=== PATIENT | female | born 1960 | race Caucasian/White ===

== ENCOUNTER → 2018-06-07 19:53 | Outpatient (CLI) | payer BC, SELFPAY | PROVIDERS: Visit Provider Physician Assistant | DX: N39.0 Urinary tract infection, site not specified (principal); R10.9 Unspecified abdominal pain | CPT/HCPCS: 87077; 87086; 87147 ==

== ENCOUNTER → 2018-06-27 17:50 | Outpatient (CLI) | payer BC, SELFPAY ==
[2018-06-27 18:20] LABS: Influenza A and B by PCR Rapid Negative (Negative)
== END ==
PROVIDERS: Visit Provider Physician Assistant
DX: R50.9 Fever, unspecified (principal); R51 Headache; R53.83 Other fatigue
CPT/HCPCS: 87400

== ENCOUNTER → 2019-02-04 08:25 | Outpatient (CLI) | payer SELFPAY | PROVIDERS: Visit Provider Physician Assistant | DX: N30.01 Acute cystitis with hematuria (principal) | CPT/HCPCS: 87077; 87086; 87186 ==

== ENCOUNTER 2019-07-22 09:23 | Day surgery (SDC) | payer OTHER, SELFPAY ==
--- NOTE | 2019-07-21 17:37 | PM.PREOP ---
Pre-operative Note Interval Note History & Physical reviewed/Exam performed by Physician: Yes Changes to H&P: No
--- NOTE | 2019-07-22 09:40 | PM.OP.1 ---
Operative Date/Time/Diagnoses Date of procedure: 07/22/19 Time of procedure: 10:45 Procedure & Clinicians Procedure: Preoperative diagnoses: 1. Right advanced nuclear sclerotic and cortical cataract. 2. Status post LASIK refractive surgery twice. 3. Asthma. 4. Hypertension Postoperative diagnoses: 1. Complex cataract removed by phacoemulsification with placement of posterior chamber intraocular lens and use of capsular dye. Procedure: Phacoemulsification with posterior chamber intraocular lens implant Surgeon: Faye Nolan MD Complications: None Specimen: None Implant: [id number] Blood loss: None Anesthesia: Retrobulbar with monitored standby Description of procedure: Patient presents with a complaint of decreased vision due to advanced cataract which is affecting activities of daily living and causing disabling glare. She has had refractive surgery twice in this and now has an advanced cortical nuclear sclerotic cataract with poor visibility of the anterior chamber. The patient wants surgery to improve vision. The patient was taken to the operating room and given IV sedation. A retrobulbar block consisting of 6 cc of 2% xylocaine without epinephrine mixed half and half with 0.5% Marcaine with 1 cc of hyaluronidase added is placed between the medial and lateral 1/3 of the inferior orbital rim. The eye is manually massaged for 30 sec, prepped using Betadine solution, and draped in the usual sterile fashion. Temporal approach was made, a 1 mm side-port incision was made 90? from the proposed clear corneal incision position. Phenylephrine 1.5% mixed with 1% xylocaine 0.2 cc was placed into the anterior chamber. An air bubble was placed and Visudyne capsular dye was placed on the anterior capsule to improve visibility. The excess dye was then irrigated. Viscoat followed by Alannah was then placed. A 2.6 mm clear incision with a 2.6 mm blade was placed. A 360 degree capsulorrhexis style capsulotomy was then performed with a cystitome needle on a Healon. Visibility was poor but greatly aided by the capsular dye and that a Utrata forceps was used to complete the capsulorrhexis.Hydrodelineation and hydrodissection were performed. The phacoemulsification unit is introduced, and sculpting notice used to groove the central lens. It is then removed in chopping mode. Epi nucleus is removed with epinuclear mode and irrigation aspiration was used to remove the peripheral cortex. The posterior capsule is polished. The intraocular lens is selected, inspected, power confirmed, and placed in the posterior chamber. The wound was stromally hydrated and tested for leaks, there was none and it was left sutureless. Vigamox 0.1 cc was placed into the anterior chamber. Kenalog 0.2 cc was placed in the superior subconjunctival space. A drop of antibiotic and was placed and the eye was patched and shielded. The patient was stable and returned to the recovery room in excellent condition. Dictated by: Faye Nolan MD Copy to: [facility] Same procedure as scheduled: Yes
[2019-07-22] MEDS: CATARACT EYE COMPOUND (10 DROPS/SYRINGE) 3 DROPS EYE-OP (09:54)
[2019-07-22] MEDS: PROPARACAINE 0.5% OPHTH SOL 2 DROPS EYE-OP (09:54)
[2019-07-22 09:59] VITALS: BP 113/78; PULSE 76; RESP 15; TEMP 37; O2SAT 98; BMI 27.4
--- NOTE | 2019-07-22 10:25 | SUR.PREOP ---
Patient became nauseated after first IV attempt. Cool cloth and emesis bag given.
[2019-07-22 10:29] VITALS: BP 89/63; PULSE 69
--- NOTE | 2019-07-22 10:29 | SUR.PREOP ---
Recheck of Blood pressure 89/63. Patient states she feels better and her nausea is relieved. GCS 15.
[2019-07-22] MEDS: LIDOCAINE 2% 4 ML, BUPIVACAINE 0.5% (PF) 4 ML, HYALURONIDASE 150 UNIT INJ (11:08)
[2019-07-22] MEDS: TRYPAN BLUE 0.5 ML SYRINGE INJ (11:24)
[2019-07-22] MEDS: CHONDROIDTIN/SOD HYALURONATE 1.05 ML SYRINGE INTRAOCULA (11:26)
[2019-07-22] MEDS: ERYTHROMYCIN OPHTH 1 GM OINT 1 APPLIC EYE-RIGHT (11:26)
[2019-07-22] MEDS: HYALURONATE SODIUM 10 MG/ML SYRINGE INJ (11:26)
[2019-07-22] MEDS: TRIAMCINOLONE 50 MG/5 ML VIAL INJ (11:27)
[2019-07-22] MEDS: MOXIFLOXACIN INJ 5 MG/ML VIAL EYE-OP (11:27)
[2019-07-22] MEDS: PHENYLEPHRINE/LIDOCAINE VIAL (OR) 0.2 ML EYE-OP (11:27)
[2019-07-22] MEDS: BALANCED SALT IRRIG SOLN NO.2 500 ML, EPINEPHrine 1 MG IRR (11:28)
[2019-07-22 12:02] VITALS: BP 102/71; PULSE 82; RESP 16; TEMP 36.8; O2SAT 100
--- NOTE | 2019-07-22 12:05 | SUR.PHASEII ---
Patient denies any pain, nausea or dizziness. Drinking gingerale without difficulty. GCS 15.
[2019-07-22 12:21] VITALS: BP 112/73
--- NOTE | 2019-07-22 12:22 | SUR.PHASEII ---
Discharged patient in stable condition with all belongings. Home with friend.
== END 2019-07-22 12:23 | disposition home or self-care (01) ==
LOC: OR 09:26
PROVIDERS: PCP Family Medicine; Referring Provider Ophthalmology; Visit Provider Ophthalmology
PROC: (CPT 66982; principal; 2019-07-22 10:45)
DX: H25.811 Combined forms of age-related cataract, right eye (principal); J45.909 Unspecified asthma, uncomplicated; I10 Essential (primary) hypertension; H43.823 Vitreomacular adhesion, bilateral; H52.203 Unspecified astigmatism, bilateral
CPT/HCPCS: 66982; J0171; J2250; J2405; J3301; J3470

== ENCOUNTER → 2020-03-21 13:27 | Outpatient (CLI) | payer OTHER, SELFPAY ==
[2020-03-21 14:12] LABS: COVID19 -Nasal RAPID Negative (Negative)
== END ==
PROVIDERS: PCP Family Medicine; Visit Provider Physician Assistant
DX: Z11.59 Encounter for screening for other viral diseases (principal)
CPT/HCPCS: 87635

== ENCOUNTER → 2020-03-23 07:41 | Day surgery (SDC) | payer OTHER, SELFPAY ==
--- NOTE | 2020-03-22 12:52 | PM.PREOP ---
Pre-operative Note COVID-19 COVID-19 status: Negative Interval Note History & Physical reviewed/Exam performed by Physician: Yes Changes to H&P: No H&P completed within 30 days and has changed as indicated here:: Patient came into the operating room drinking coffee with cream.she declined returning after a 6 hour NPO wait and will be canceled and rescheduled.She states she was aware she was to be NPO.
--- NOTE | 2020-03-23 07:35 | P.OP_ITS ---
Operative Date/Time/Diagnoses Date of procedure: 03/23/20 Time of procedure: 08:45 Procedure & Clinicians Procedure: Preoperative diagnoses: 1. Complex left cortical and nuclear sclerotic cataract with need for capsular dye. 2. Astigmatism which is to be corrected with a toric intraocular lens implant. 3. Multiple previous refractive surgeries 4. Ptosis 5. Hypertension 7. Asthma Postoperative diagnoses: 1. Cataract removal with phacoemulsification with toric posterior chamber intraocular lens implant placed. Procedure: Complex Phacoemulsification with posterior chamber toric intraocular lens implant and use of capsular dye. Surgeon: Faye Nolan MD Complications: None Specimen: None Implant: [id number]. [place] 170, myopic target Blood loss: None Anesthesia: Retrobulbar with monitored standby Description of procedure: Patient presents with n advanced cortical cataract through the visual axis and has a complaint of decreased vision due to cataract which is affecting activities of daily living. Her surgery has been delayed due to the COVID-19 epidemic her previous surgery for complex surgery 6 months ago. She has had multiple refractive surgeries and desires a nearsighted target The patient wants surgery to improve vision and astigmatism. She understands there is more variability in the results due to these high risk factors. The patient was taken to the operating room and proparacaine drops placed. Indelible ink mehta were placed at the 90 and 180 degree meridian. The patient was placed on the operating room table and given IV sedation. A retrobulbar block insert consisting of 6 cc of 2% xylocaine without epinephrine mixed half and half with 0.5% Marcaine with 1 cc of hyaluronidase added is placed between the medial and lateral 1/3 of the inferior orbital rim. The eye is manually massaged for 30 sec, prepped using Betadine solution, and draped in the usual sterile fashion. Temporal approach was made, a 1 mm side-port incision was made 90? from the proposed corneal wound. Phenylephrine 1.5% mixed with 1% xylocaine 0.2 cc was placed into the anterior chamber. An air bubble was placed in the anterior chamber. Visudyne capsular dye was then placed into the anterior chamber and then irrigated excess out with BSS. Viscoat followed by Healon was then placed. A 2.6 mm clear incision with a 2.6 mm blade was placed at the 170 degree meridian. A 360 degree capsulorrhexis style capsulotomy was then performed with a cystitome needle on a Healon. Hydrodelineation and hydrodissection were performed. The phacoemulsification unit is introduced, and sculpting used to groove the central lens. It is then removed in chopping mode. Epi nucleus is removed with epinuclear mode and irrigation aspiration was used to remove the peripheral cortex. The posterior capsule is polished. The intraocular lens is selected, inspected, power confirmed, and placed in the posterior chamber at the desired meridian of 170?. The pupil was not constricted. The wound was stromally hydrated and tested for leaks, there was none and it was left sutureless. Vigamox 0.1 cc was placed into the anterior chamber. Kenalog 0.2 cc was placed in the superior subconjunctival space. A drop of antibiotic and was placed and the eye was patched and shielded. The patient was stable and returned to the recovery room in excellent condition. Dictated by: Faye Nolan MD Copy to: [facility]
--- NOTE | 2020-03-23 08:00 | SUR.PREOP ---
Pt arrived drinking coffee with cream in it. Pt states they always tell me not to drink stuff, but I do anyway. Dr Nolan notified of NPO status. Pt offered by Dr Nolan to be rescheduled to end of day. Pt refused and stated let's just cancel.
== END | disposition home or self-care (01) ==
PROVIDERS: PCP Family Medicine; Referring Provider Family Medicine; Visit Provider Ophthalmology
CPT/HCPCS: J2405; J2704

== ENCOUNTER 2020-03-24 15:46 | Observation (INO) | payer OTHER, SELFPAY ==
[2020-03-24 15:50] VITALS: BP 192/84; PULSE 63; RESP 14; TEMP 37.1; O2SAT 100; BMI 28.3
--- NOTE | 2020-03-24 15:58 | DI.CT.S_ITS ---
PROCEDURE: CT HEAD/BRAIN WO CON INDICATIONS: possible TIA last night TECHNIQUE: Noncontrast 4.5 mm thick angled axial sections acquired from the foramen magnum to the vertex, with coronal and sagittal reformats. For radiation dose reduction, the following was used: automated exposure control, adjustment of mA and/or kV according to patient size. COMPARISON: [facility], CR, XR CHEST 1V, 03/24/2020, 14:58. FINDINGS: Image quality: Excellent. CSF spaces: Basal cisterns are patent. No extra-axial fluid collections. The ventricles are symmetric in size and shape. Brain: No intracranial bleeds or masses. There is cerebral volume loss for age, with resultant ventricular and sulcal prominence. There are periventricular and deep white matter chronic small vessel ischemic changes. There is intracranial internal carotid artery atherosclerosis. Skull and face: Calvarium and visualized facial bones appear intact, without suspicious lesions. Sinuses: Visualized sinuses and mastoids are clear. IMPRESSION: Normal noncontrast head CT for age. If there is strong clinical suspicion for an acute stroke, please consider an MRI for further evaluation, as it is more sensitive (assuming that there is no contraindication to MRI). Dictated by: Bharat Camacho M.D. on 03/24/2020 at 15:21 Approved by: Bharat Camacho M.D. on 03/24/2020 at 15:22
--- NOTE | 2020-03-24 15:58 | DI.RAD.S_ITS ---
PROCEDURE: XR CHEST 1V INDICATIONS: Possible stroke TECHNIQUE: One view of the chest was acquired. COMPARISON: [facility], CT, CT HEAD/BRAIN WO CON, 03/24/2020, 15:59. FINDINGS: Surgical changes and devices: None. Lungs and pleura: Lungs are clear. No pleural effusions or pneumothorax. Mediastinum: Mediastinal contours appear normal. Heart size is normal. Bones and chest wall: No suspicious bony lesions. Overlying soft tissues appear unremarkable. IMPRESSION: Portable chest within normal limits. Dictated by: Bharat Camacho M.D. on 03/24/2020 at 15:24 Approved by: Bharat Camacho M.D. on 03/24/2020 at 15:24
[2020-03-24 16:33] LABS: INR 0.9 (0.9-1.3); Prothrombin Time 10.3 SECONDS (10.1-12.7)
[2020-03-24 16:35] LABS: Add Manual Diff / Slide Review NO; Basophils Absolute Auto 100 /uL (0-100); Basophils Percent Auto 0.8 % (0-2); Eosinophils Absolute Auto 100 /uL (0-450); Eosinophils Percent Auto 1.6 % (2-4); Hematocrit 38.5 % (36-46); Hemoglobin 12.8 g/dL (12.0-16.0); Lymphocytes Absolute Auto 3200 /uL (1100-4500); Lymphocytes Percent Auto 38.6 % (25-40); Mean Corpuscular HGB Conc 33.3 % (30-36); Mean Corpuscular Hemoglobin 31.2 PG (26-34); Mean Corpuscular Volume 93.6 fL (80-100); Monocytes Absolute Auto 800 /uL (0-900); Monocytes Percent Auto 9.3 % (3-14); Neutrophils Absolute Auto 4100 /uL (1500-7000); Neutrophils Percent Auto 49.7 % (50-75); Platelet Count 367 X10^3/uL (150-400); Red Blood Cell Count 4.11 X10^6/uL (4.0-5.2); Red Cell Distribution Width 13.3 % (11.6-14.8); White Blood Cell Count 8.3 X10^3/uL (4.5-11.0)
[2020-03-24 16:36] LABS: PTT Partial Thromboplastin Tim 31 SECONDS (26.4-36.2)
[2020-03-24 16:39] LABS: Alanine Aminotransferase 27 IU/L (<35); Albumin 4.3 g/dL (3.5-5.0); Albumin Globulin Ratio 1.3 (1.0-2.8); Alkaline Phosphatase 55 U/L (38-126); Aspartate Aminotransferase 44 IU/L (14-36); BUN Creatinine Ratio 17.1 (6-22); Bilirubin Total 0.4 mg/dL (0.2-1.3); Blood Urea Nitrogen 14 mg/dL (7-17); Calcium 9.3 mg/dL (8.4-10.2); Carbon Dioxide 33 mmol/L (22-32); Chloride 101 mmol/L (98-107); Creatine Kinase 795 U/L (30-135); Estimated Glomerular Filt Rate > 60.0 mL/min (>60); Globulin 3.4 g/dL (1.7-4.1); Glucose 93 mg/dL (80-110); HEMOLYSIS < 15 (0-50); Potassium 3.7 mmol/L (3.4-5.1); Sodium 138 mmol/L (137-145); Total Protein 7.7 g/dL (6.3-8.2)
[2020-03-24 16:52] LABS: Troponin I < 0.012 ng/mL (0.01-0.034)
[2020-03-24 16:54] LABS: CKMB % Relative Index 0.1 % (1.5-5.0); Creatine Kinase MB 0.47 ng/mL (<2.37)
[2020-03-24 18:25] VITALS: BP 135/68; PULSE 63; RESP 16; O2SAT 100
[2020-03-24 18:31] LABS: UR Morphine/Opiate cutoff 300 Negative (Negative); Ur Creatinine Normal (Normal); Ur Specific Gravity Normal (Normal); Urine Amphetamines Negative (Negative); Urine Barbiturates Negative (Negative); Urine Benzodiazepines Negative (Negative); Urine Cocaine Negative (Negative); Urine MDMA Negative (Negative); Urine Methadone Negative (Negative); Urine Methamphetamines Negative (Negative); Urine Oxycodone Negative (Negative); Urine Phencyclidine Negative (Negative); Urine Tetrahydrocannabinol Negative (Negative); Urine Tricyclic Antidepressant Negative (Negative); Urine pH Normal (Normal)
--- NOTE | 2020-03-24 18:47 | ED.NEUROSD ---
HPI - Neuro Symptoms/Deficit General Chief Complaint: Neuro Symptoms/Deficit Stated Complaint: possible mini stroke last night, slurred speech Time Seen by Provider: 03/24/20 18:08 Source: patient Mode of arrival: Ambulatory Limitations: no limitations History of Present Illness HPI Narrative: 60-year-old female with a history of hypertension and borderline hyperlipidemia presents with a chief complaint that she fears she may have had a mini stroke last night. She states that she had a sudden onset trouble with speech, finding words and slurring her words. She states that she has occasions where her left arm feels numb and tingling as well. She currently is asymptomatic. She denies any headache or neck pain. She has had no chest pain or shortness of breath. She denies nausea, vomiting or diarrhea. She has had no fever chills and denies any recent trauma or other injury. Onset (ago): hour(s) Location: speech and left arm History of same: No Severity: moderate Quality: numb, tingling and improving Relieving factors: time Exacerbating factors: none On Anticoagulants: No Associated symptoms: denies other symptoms Related Data Home Medications Medication Instructions Recorded Confirmed citalopram 20 mg tablet 20 mg PO DAILY 06/07/18 03/24/20 lisinopril 10 mg tablet 5 mg PO DAILY 06/07/18 03/24/20 aspirin 81 mg tablet,delayed 81 mg PO DAILY 06/27/18 03/24/20 release Previous Rx's Medication Instructions Recorded estradiol 1 vaginalrin VAG [id number] #1 each 02/04/19 cyclobenzaprine 10 mg tablet 10 mg PO BID #20 tab 11/02/19 Allergies Allergy/AdvReac Type Severity Reaction Status Date / Time No Known Drug Allergies Allergy Verified 03/24/20 16:10 Review of Systems Constitutional Constitutional: Denies chills, Denies fatigue, Denies fever(s), Denies frequent falls, Denies lethargy and Denies weakness Eyes Eyes: Denies change in vision, Denies eye discharge, Denies irritation and Denies loss of vision ENT Ears, Nose, Mouth, and Throat: Denies change in voice, Denies dizziness, Denies neck pain, Denies sore throat and Denies throat swelling Cardiovascular Cardiovascular: Denies chest pain, Denies irregular heart rhythm, Denies lightheadedness, Denies palpitations, Denies dyspnea, Denies dyspnea on exertion and Denies orthopnea Respiratory Respiratory: Denies cough, Denies dyspnea, Denies dyspnea on exertion and Denies wheezing Gastrointestinal Gastrointestinal: Denies abdominal pain, Denies change in bowel habits, Denies diarrhea, Denies nausea and Denies vomiting Musculoskeletal Musculoskeletal: Denies neck pain and Reports numbness Integumentary/Breasts Skin/Breast: Denies pruritus, Denies erythema, Denies rash and Denies wounds Neurologic Neurologic: Reports abnormal speech, Denies behavioral changes, Denies confusion, Denies dizziness, Denies frequent falls, Denies loss of vision, Reports numbness and Denies weakness Psychiatric Psychiatric: Denies anxiety, Denies behavioral changes, Denies confusion, Denies depression, Denies homicidal ideation and Denies suicidal ideation Endocrine Endocrine: Denies fatigue, Denies flushing and Denies palpitations Hematologic/Lymphatic Hematologic/Lymphatic: Denies easy bruising Allergic/Immunologic Allergic/Immunologic: Denies urticaria, Denies throat swelling and Denies wheezing Patient History Medical History Anxiety Essential hypertension Low back pain Surgical History History of right cataract surgery Family History Mother Myocardial infarction Hx of coronary artery bypass surgery Other Cancer Social History household members: none Smoking Status: Never smoker Smoking Status: Never smoker alcohol intake frequency: holidays/special occasions only Substance Use Type: does not use Exam Narrative Exam Narrative: GENERAL: [60] year old patient appears stated age. Well-nourished, well-developed patient, in mild distress. HEAD: Atraumatic. Normocephalic. EYES: Pupils equal round and reactive. Extraocular motions intact. No scleral icterus. No injection or drainage. ENT: Nose without bleeding, purulent drainage. Throat without erythema, tonsillar hypertrophy or exudate. Airway patent. NECK: Trachea midline. Non tender CARDIOVASCULAR: Regular rate and rhythm without murmurs, gallops, or rubs. RESPIRATORY: Clear to auscultation. Breath sounds equal bilaterally. No wheezes, rales, or rhonchi. GASTROINTESTINAL: Abdomen soft, non-tender, nondistended. EXTREMITIES: No edema or joint tenderness. BACK: Nontender without deformity or crepitance. No flank tenderness. NEURO: AOx3. SKIN: No rash or erythema of visible areas NIH Stroke Scale 1a. LOC: Patient is alert and keenly responsive (0) 1b. LOC Questions: Patient answers both LOC questions accurately (0) 1c. LOC Commands: Patient performs both tasks correctly (0) 2. Best Gaze: Normal (0) 3. Visual: No visual loss (0) 4. Facial palsy: Normal symmetrical movements (0) 5. Motor arm: No drift (0) 6. Motor leg: No drift (0) 7. Limb ataxia: Absent (0) 8. Sensory: Normal (0) 9. Best language: No aphasia; normal (0) 10. Dysarthria: Normal (0) 11. Extinction and inattention: No abnormality (0) NIHSS: 0 Initial Vital Signs Initial Vital Signs: Vital Signs Temperature 98.7 F 03/24/20 15:50 Pulse Rate 63 03/24/20 15:50 Respiratory Rate 14 03/24/20 15:50 Blood Pressure 192/84 H 03/24/20 15:50 Pulse Oximetry 100 03/24/20 15:50 Course Orders Ordered: Acetaminophen (Acetaminophen 325 Mg Tablet) 650 mg PO Q6HR PRN PRN Reason: Fever/Mild Pain (1-3) Aspirin (Aspirin Ec 81 Mg Tablet) 81 mg PO DAILY [facility] Atorvastatin Calcium (Atorvastatin 20 Mg Tablet) 40 mg PO BEDTIME [facility] Citalopram Hydrobromide (Citalopram 10 Mg Tablet) 20 mg PO DAILY [facility] Clopidogrel Bisulfate (Clopidogrel 75 Mg Tablet) 75 mg PO DAILY [facility] Enoxaparin Sodium (Enoxaparin 40 Mg/0.4 Ml Syringe) 40 mg SUBCUT DAILY [facility] Enoxaparin Sodium (Enoxaparin 40 Mg/0.4 Ml Syringe) 40 mg SUBCUT DAILY [facility] Influenza Virus Vaccine (Influenza Vaccine 0.5 Ml Syringe) 0.5 ml IM .ONCE ONE Stop: 03/25/20 09:01 Lisinopril (Lisinopril 10 Mg Tablet) 5 mg PO DAILY [facility] Naloxone HCl (Naloxone 0.4 Mg/Ml Vial) 0.2 mg IV Q2MIN PRN PRN Reason: Opiate Reversal Discontinued Medications Atorvastatin Calcium (Atorvastatin 20 Mg Tablet) 20 mg PO BEDTIME [facility] Clopidogrel Bisulfate (Clopidogrel 75 Mg Tablet) 75 mg PO DAILY [facility] Vital Signs Vital signs: Vital Signs - 8 hr 03/24/20 15:50 03/24/20 18:25 Temperature 98.7 F Pulse Rate 63 63 Respiratory Rate 14 16 Blood Pressure 192/84 H 135/68 Pulse Oximetry 100 100 MDM - Neuro Symptoms/Deficit Lab Data Result diagrams: 03/25/20 04:07 03/25/20 04:07 Labs: Lab Results 03/24/20 03/24/20 03/24/20 Range/Units 16:19 16:19 16:19 WBC 8.3 (4.5-11.0) X10^3/uL RBC 4.11 (4.0-5.2) X10^6/uL Hgb 12.8 (12.0-16.0) g/dL Hct 38.5 (36-46) % MCV 93.6 (80-100) fL MCH 31.2 (26-34) PG MCHC 33.3 (30-36) % RDW 13.3 (11.6-14.8) % Plt Count 367 (150-400) X10^3/uL Neut % (Auto) 49.7 L (50-75) % Lymph % (Auto) 38.6 (25-40) % [place] % (Auto) 9.3 (3-14) % Eos % (Auto) 1.6 L (2-4) % Baso % (Auto) 0.8 (0-2) % Neut # (Auto) 4100 (8890-7601) /uL Lymph # (Auto) 3200 (3308-3584) /uL [place] # (Auto) 800 (0-900) /uL Eos # (Auto) 100 (0-450) /uL Baso # (Auto) 100 (0-100) /uL PT 10.3 (10.1-12.7) SECONDS INR 0.9 (0.9-1.3) APTT 31 (26.4-36.2) SECONDS Sodium 138 (137-145) mmol/L Potassium 3.7 (3.4-5.1) mmol/L Chloride 101 (98-107) mmol/L Carbon Dioxide 33 H (22-32) mmol/L BUN 14 (7-17) mg/dL Creatinine 0.82 (0.52-1.04) mg/dL Estimated GFR > 60.0 (>60) mL/min BUN/Creatinine Ratio 17.1 (6-22) Glucose 93 (80-110) mg/dL Hemoglobin A1c (4.0-6.0) % Calcium 9.3 (8.4-10.2) mg/dL Magnesium (1.6-2.3) mg/dL Total Bilirubin 0.4 (0.2-1.3) mg/dL AST 44 H (14-36) IU/L ALT 27 (<35) IU/L Alkaline Phosphatase 55 (38-126) U/L Total Creatine Kinase 795 H (30-135) U/L CK-MB (CK-2) 0.47 (<2.37) ng/mL CK-MB (CK-2) Rel Index 0.1 L (1.5-5.0) % Troponin I < 0.012 (0.01-0.034) ng/mL Total Protein 7.7 (6.3-8.2) g/dL Albumin 4.3 (3.5-5.0) g/dL Globulin 3.4 (1.7-4.1) g/dL Albumin/Globulin Ratio 1.3 (1.0-2.8) U Opiates 300ng/mL cut (Negative) Ur Oxycodone Screen (Negative) Urine Methadone Screen (Negative) Ur Barbiturates Screen (Negative) U Tricyclic Antidepress (Negative) Ur Phencyclidine Scrn (Negative) Ur Amphetamines Screen (Negative) U Methamphetamines Scrn (Negative) Ur MDMA Scrn (Ecstasy) (Negative) U Benzodiazepines Scrn (Negative) Urine Cocaine Screen (Negative) U Marijuana (THC) Screen (Negative) 03/24/20 03/24/20 03/24/20 Range/Units 16:19 16:19 18:21 WBC (4.5-11.0) X10^3/uL RBC (4.0-5.2) X10^6/uL Hgb (12.0-16.0) g/dL Hct (36-46) % MCV (80-100) fL MCH (26-34) PG MCHC (30-36) % RDW (11.6-14.8) % Plt Count (150-400) X10^3/uL Neut % (Auto) (50-75) % Lymph % (Auto) (25-40) % [place] % (Auto) (3-14) % Eos % (Auto) (2-4) % Baso % (Auto) (0-2) % Neut # (Auto) (2749-8670) /uL Lymph # (Auto) (4873-2131) /uL [place] # (Auto) (0-900) /uL Eos # (Auto) (0-450) /uL Baso # (Auto) (0-100) /uL PT (10.1-12.7) SECONDS INR (0.9-1.3) APTT (26.4-36.2) SECONDS Sodium (137-145) mmol/L Potassium (3.4-5.1) mmol/L Chloride (98-107) mmol/L Carbon Dioxide (22-32) mmol/L BUN (7-17) mg/dL Creatinine (0.52-1.04) mg/dL Estimated GFR (>60) mL/min BUN/Creatinine Ratio (6-22) Glucose (80-110) mg/dL Hemoglobin A1c 5.8 (4.0-6.0) % Calcium (8.4-10.2) mg/dL Magnesium 2.1 (1.6-2.3) mg/dL Total Bilirubin (0.2-1.3) mg/dL AST (14-36) IU/L ALT (<35) IU/L Alkaline Phosphatase (38-126) U/L Total Creatine Kinase (30-135) U/L CK-MB (CK-2) (<2.37) ng/mL CK-MB (CK-2) Rel Index (1.5-5.0) % Troponin I (0.01-0.034) ng/mL Total Protein (6.3-8.2) g/dL Albumin (3.5-5.0) g/dL Globulin (1.7-4.1) g/dL Albumin/Globulin Ratio (1.0-2.8) U Opiates 300ng/mL cut Negative (Negative) Ur Oxycodone Screen Negative (Negative) Urine Methadone Screen Negative (Negative) Ur Barbiturates Screen Negative (Negative) U Tricyclic Antidepress Negative (Negative) Ur Phencyclidine Scrn Negative (Negative) Ur Amphetamines Screen Negative (Negative) U Methamphetamines Scrn Negative (Negative) Ur MDMA Scrn (Ecstasy) Negative (Negative) U Benzodiazepines Scrn Negative (Negative) Urine Cocaine Screen Negative (Negative) U Marijuana (THC) Screen Negative (Negative) Point of Care Testing Glucose POC 83 Urine Dip Bedside Urine Glucose Negative Bedside Urine Bilirubin - Negative Bedside Urine Ketone - Negative Urine Specific [place] 1.010 Bedside Urine Occult Blood - Negative Bedside Urine pH 6.5 Bedside Urine Protein - Negative Bedside Urine Urobilinogen - Negative Bedside Urine Nitrite - Negative Bedside Urine Leukocytes - Negative Esterase Imaging Data CT scan - head: Radiologist's Impression: Frances Wu 60 F [address] [address]PM Scan ReportSigned Patient: Frances Wu SMR#: [id number]: [id number]/Sex: 60 / FDate of Service: 03/24/20Loc: EDAccession Number: [id number] Procedure: CT head/brain wo con Ordering Provider: Arely Armas D.O. PROCEDURE: CT HEAD/BRAIN WO CON INDICATIONS: possible TIA last night TECHNIQUE: Noncontrast 4.5 mm thick angled axial sections acquired from the foramen magnum to the vertex, with coronal and sagittal reformats. For radiation dose reduction, the following was used: automated exposure control, adjustment of mA and/or kV according to patient size. COMPARISON: [facility], CR, XR CHEST 1V, 03/24/2020, 14:58. FINDINGS: Image quality: Excellent. CSF spaces: Basal cisterns are patent. No extra-axial fluid collections. The ventricles are symmetric in size and shape. Brain: No intracranial bleeds or masses. There is cerebral volume loss for age, with resultant ventricular and sulcal prominence. There are periventricular and deep white matter chronic small vessel ischemic changes. There is intracranial internal carotid artery atherosclerosis. Skull and face: Calvarium and visualized facial bones appear intact, without suspicious lesions. Sinuses: Visualized sinuses and mastoids are clear. IMPRESSION: Normal noncontrast head CT for age. If there is strong clinical suspicion for an acute stroke, please consider an MRI for further evaluation, as it is more sensitive (assuming that there is no contraindication to MRI). Dictated by: Bharat Camacho M.D. on 03/24/2020 at 15:21 Approved by: Bharat Camacho M.D. on 03/24/2020 at 15:22 Discharge Plan Departure Patient Disposition: Admitted As Inpatient Clinical Impression: Brain TIA Admit Date/Time: 03/24/20 19:10 Admit Provider: Bettie Bishop
[2020-03-24 20:19] LABS: COVID19 -Nasal RAPID Negative (Negative)
[2020-03-24 20:20] VITALS: BP 109/65; PULSE 63; RESP 20; TEMP 36.6; O2SAT 99
[2020-03-24 21:59] VITALS: BMI 27.8
[2020-03-24 22:41] VITALS: BP 126/69; PULSE 72; RESP 18; O2SAT 100
[2020-03-24 23:00] VITALS: O2SAT 100
[2020-03-24 23:17] LABS: Magnesium 2.1 mg/dL (1.6-2.3)
[2020-03-24 23:19] LABS: Hemoglobin A1C% w Est Avg Glu 5.8 % (4.0-6.0)
--- NOTE | 2020-03-25 | DI.MRI.S_ITS ---
PROCEDURE: MR STROKE Pre- and post-contrast brain MRI, non-contrast brain MR angiogram, pre- and postcontrast neck MR angiogram INDICATIONS: TIA TECHNIQUE: Brain: Noncontrast axial T1 spin echo, axial T2 fast spin echo, sagittal and axial FLAIR, coronal T2 fast spin echo, axial gradient echo, axial diffusion and ADC through the brain. After the administration of contrast, axial 3D VIBE of the cranial vasculature and brain. Brain MRA: Non-contrast 3-D time of flight MR angiogram, with multiple gixxtqh-mtukkpkds-dzcfprjdjj (MIP) reformats performed. Neck MRA: Axial and sagittal TruFISP through the neck. Coronal dynamic MR angiogram during administration of contrast in the arterial and venous phases, with 3-dimenstional zmdkxrw-rnzutksln-otdsnynfgn (MIP) reformats constructed from subtraction images. COMPARISON: [facility], CT, CT HEAD/BRAIN WO CON, 03/24/2020, 15:59. FINDINGS: Image quality: Excellent. BRAIN: CSF spaces: Ventricles are normal in size and shape. Basal cisterns are patent. No extra-axial fluid collections. Brain: No intracranial bleeds or mass effects. Mild diffuse cerebral volume loss. Mild degree of patchy high FLAIR signal within the periventricular and subcortical white matter, consistent with small vessel ischemic disease. Perez-white matter interface is normal. Diffusion weighted images show no acute ischemic insults. Brainstem appears normal. Normal intravascular flow voids are present. No abnormal intracranial enhancement. Skull and face: Calvarial marrow signal is normal. Orbits appear normal. Sinuses: Sinuses and mastoids are clear. BRAIN MR ANGIOGRAM: Anterior circulation: Intracranial internal carotid arteries are normal in size and enhancement. The flow within the paired anterior cerebral arteries is normal and symmetric. The flow within the middle cerebral arteries is normal and symmetric. The anterior communicating artery is seen. No stenoses, occlusions, or aneurysms. Posterior circulation: The visualized portions of the vertebral arteries demonstrate normal caliber. Right vertebral artery terminates in a posterior inferior cerebellar artery. Basilar artery is patent. The flow within the posterior cerebral arteries is normal and symmetric. No stenoses, occlusions, or aneurysms. NECK MR ANGIOGRAM: Carotids: There is a common origin of the innominate and left common carotid arteries, which is patent. The origins of the common carotid arteries appear patent. The calibers and courses of both common carotid arteries are normal. The bifurcation regions appear normal bilaterally. The internal carotid arteries demonstrate normal course and caliber. Posterior circulation: The origins of the vertebral arteries appear patent. More superior portions of both vertebral arteries demonstrate normal course and caliber. Right vertebral artery terminates in a posterior inferior cerebellar artery. Basilar artery is patent. Miscellaneous: Subclavian arteries appear patent. Pre-contrast images through the neck show no soft tissue abnormalities. IMPRESSION: BRAIN MRI: 1. No acute process. No recent infarct. 2. Mild volume loss and small vessel ischemic disease. BRAIN MR ANGIOGRAM: Negative cerebral MR angiography. NECK MR ANGIOGRAM: 1. No internal carotid artery stenosis bilaterally. 2. Patent bilateral vertebral arteries. Dictated by: Jerry Salazar M.D. on 03/25/2020 at 14:45 Approved by: Jerry Salazar M.D. on 03/25/2020 at 14:48
[2020-03-25 00:28] VITALS: BP 126/69; PULSE 54; RESP 13; TEMP 36.6; O2SAT 100
--- NOTE | 2020-03-25 03:48 | P.HP_ITS ---
History of Present Illness History of Present Illness Date Patient Seen: 03/24/20 Time Patient Seen: 22:30 Chief complaint: possible mini stroke last night, slurred speech Narrative: Frances Wu is a 60 y.o. female with hypertension and anxiety who was in her usual state of health, working out at a local gym and presented with a one day history of a bed pressure in her head and headache, unable to speak and having blinding pain. She took 3 baby aspirin and then took a couple more after an hour and nothing had changed. She states something similar happened to this where she had been exercising and had a ?blinding headache and noticed that her right eye pupil was larger than the left. She does occasionally use albuterol she does not recall if she was using albuterol at that time. She stated that she was weak and had left arm pain and her hand was also aching she did have a stay tingling and sensation in her left hand and denied nausea or vomiting, shortness of breath, dysuria, abdominal pain, diarrhea or constipation. On 03/24, she was to have had right eye cataract removal with an implantation of IOL, however this was cancelled because she had drank coffee prior to the procedure. CT of the head and chest x-ray that were ordered in the emergency department were both negative for any acute process. She is afebrile, blood pressure 126/69, heart rate 54, respiratory rate 13 oxygen saturation of 100%% on room air, she weighs 73.7 kg with a BMI of 27.9. CBC largely within normal limits, BMP within normal limits, AST is mildly elevated 44, total creatinine kinase is 795, CK-MB was 0.1%, troponin was normal. Toxicology results were negative and COVID PCR was negative. Patient History Medical History (Updated 03/25/20 @ 04:00 by ENEDINA Pickard) Anxiety Essential hypertension Low back pain Surgical History (Updated 03/25/20 @ 04:00 by ENEDINA Pickard) History of right cataract surgery Family & Social History Family History (Updated 03/25/20 @ 04:01 by ENEDINA Pickard) Mother Myocardial infarction Hx of coronary artery bypass surgery Other Cancer Social History: household members none Prior Living Arrangements House Safety & Behavioral: Feels Safe in Current Yes Environment Been Physically Hurt or No Threatened By a Person Suicidal Ideation Description None Suicide Plan Description No Plan Tobacco & Substance use: Smoking Status Quit 30 years ago alcohol intake frequency holiday/special occasion Substance Use Type does not use Meds Home Medications and Allergies Home Medications Medication Instructions Recorded Confirmed Type citalopram 20 mg tablet 20 mg PO DAILY 06/07/18 03/24/20 History lisinopril 10 mg tablet 5 mg PO DAILY 06/07/18 03/24/20 History aspirin 81 mg tablet,delayed 81 mg PO DAILY 06/27/18 03/24/20 History release estradiol 1 vaginalrin VAG [id number] #1 each 02/04/19 03/24/20 Rx cyclobenzaprine 10 mg tablet 10 mg PO BID #20 tab 11/02/19 11/02/19 Rx Allergies Allergy/AdvReac Type Severity Reaction Status Date / Time No Known Drug Allergies Allergy Verified 03/24/20 16:10 Review of Systems Review of Systems ROS: Yes All systems reviewed with the patient and are negative except as otherwise documented Exam Vital Signs (past 8 hours): - 03/24/20 20:20 03/24/20 22:41 03/24/20 23:00 Temperature 97.8 F Pulse Rate 63 72 Respiratory Rate 20 18 Blood Pressure 109/65 126/69 Pulse Oximetry 99 100 100 03/25/20 00:28 Temperature 97.8 F Pulse Rate 54 L Respiratory Rate 13 Blood Pressure 126/69 Pulse Oximetry 100 Oxygen Delivery Method Room Air Oxygen Flow Rate 0 Narrative Exam Narrative: Gen: Alert, oriented, well-developed 60 y.o. female, appears younger than stated age HEENT: normocephalic, atraumatic, conjunctiva clear, sclera non-icteric, oral mucosa pink and moist Neck: supple, full ROM, no JVD, trachea is midline Resp: Lungs CTA, non-labored breathing CV: RRR, no murmur or rubs Abd: soft, non-tender, normoactive BTs Skin: no lesions or rashes, dry and intact Neuro: Alert and oriented X 4 w/no focal deficits. Speech clear and coherent. Extremities: moves all 4 extremities, is ambulatory, negative Criss?s sign Psyche: normal mood and affect. Objective Labs Result Diagrams: 03/24/20 16:19 03/24/20 16:19 Labs: Laboratory Results - last 24 hr 03/24/20 03/24/20 03/24/20 16:19 16:19 16:19 WBC 8.3 RBC 4.11 Hgb 12.8 Hct 38.5 MCV 93.6 MCH 31.2 MCHC 33.3 RDW 13.3 Plt Count 367 Neut % (Auto) 49.7 L Lymph % (Auto) 38.6 [place] % (Auto) 9.3 Eos % (Auto) 1.6 L Baso % (Auto) 0.8 Neut # (Auto) 4100 Lymph # (Auto) 3200 [place] # (Auto) 800 Eos # (Auto) 100 Baso # (Auto) 100 PT 10.3 INR 0.9 APTT 31 Sodium 138 Potassium 3.7 Chloride 101 Carbon Dioxide 33 H BUN 14 Creatinine 0.82 Estimated GFR > 60.0 BUN/Creatinine Ratio 17.1 Glucose 93 Hemoglobin A1c Calcium 9.3 Magnesium Total Bilirubin 0.4 AST 44 H ALT 27 Alkaline Phosphatase 55 Total Creatine Kinase 795 H CK-MB (CK-2) 0.47 CK-MB (CK-2) Rel Index 0.1 L Troponin I < 0.012 Total Protein 7.7 Albumin 4.3 Globulin 3.4 Albumin/Globulin Ratio 1.3 Nasal Screen MRSA (PCR) U Opiates 300ng/mL cut Ur Oxycodone Screen Urine Methadone Screen Ur Barbiturates Screen U Tricyclic Antidepress Ur Phencyclidine Scrn Ur Amphetamines Screen U Methamphetamines Scrn Ur MDMA Scrn (Ecstasy) U Benzodiazepines Scrn Urine Cocaine Screen U Marijuana (THC) Screen COVID-19 PCR 03/24/20 03/24/20 03/24/20 16:19 16:19 18:21 WBC RBC Hgb Hct MCV MCH MCHC RDW Plt Count Neut % (Auto) Lymph % (Auto) [place] % (Auto) Eos % (Auto) Baso % (Auto) Neut # (Auto) Lymph # (Auto) [place] # (Auto) Eos # (Auto) Baso # (Auto) PT INR APTT Sodium Potassium Chloride Carbon Dioxide BUN Creatinine Estimated GFR BUN/Creatinine Ratio Glucose Hemoglobin A1c 5.8 Calcium Magnesium 2.1 Total Bilirubin AST ALT Alkaline Phosphatase Total Creatine Kinase CK-MB (CK-2) CK-MB (CK-2) Rel Index Troponin I Total Protein Albumin Globulin Albumin/Globulin Ratio Nasal Screen MRSA (PCR) U Opiates 300ng/mL cut Negative Ur Oxycodone Screen Negative Urine Methadone Screen Negative Ur Barbiturates Screen Negative U Tricyclic Antidepress Negative Ur Phencyclidine Scrn Negative Ur Amphetamines Screen Negative U Methamphetamines Scrn Negative Ur MDMA Scrn (Ecstasy) Negative U Benzodiazepines Scrn Negative Urine Cocaine Screen Negative U Marijuana (THC) Screen Negative COVID-19 PCR 03/24/20 03/24/20 19:54 22:35 WBC RBC Hgb Hct MCV MCH MCHC RDW Plt Count Neut % (Auto) Lymph % (Auto) [place] % (Auto) Eos % (Auto) Baso % (Auto) Neut # (Auto) Lymph # (Auto) [place] # (Auto) Eos # (Auto) Baso # (Auto) PT INR APTT Sodium Potassium Chloride Carbon Dioxide BUN Creatinine Estimated GFR BUN/Creatinine Ratio Glucose Hemoglobin A1c Calcium Magnesium Total Bilirubin AST ALT Alkaline Phosphatase Total Creatine Kinase CK-MB (CK-2) CK-MB (CK-2) Rel Index Troponin I Total Protein Albumin Globulin Albumin/Globulin Ratio Nasal Screen MRSA (PCR) Negative for mrsa U Opiates 300ng/mL cut Ur Oxycodone Screen Urine Methadone Screen Ur Barbiturates Screen U Tricyclic Antidepress Ur Phencyclidine Scrn Ur Amphetamines Screen U Methamphetamines Scrn Ur MDMA Scrn (Ecstasy) U Benzodiazepines Scrn Urine Cocaine Screen U Marijuana (THC) Screen COVID-19 PCR Negative Assessment & Plan Assessment & Plan narrative: Frances Wu will be observed and evaluated for a TIA and chest pain. Suspected TIA versus stroke, acute, present on admission -Cardiac telemetry -NIH scoring and neuro checks q 4 hours -initiate clopidogrel 75 mg p.o. daily and aspirin 81 mg p.o. daily -MR stroke scheduled for 03/25 -Complete Echo with bubble study for 03/25 -PT/OT/ST evaluation Hypertension, acute with an admission bp of 192/84, present on admission -Allow for permissive hypertension of 220/110 HR 60 to allow for brain perfusion. BP normalized after the first reading HLD -Lipid panel, pending -Atorvastatin 40 mg po at bedtime Risk stratification -Fasting lipid panel -A1c 5.8%, so diabetes ruled out. VTE prophylaxis: Wells risk score: 0 Enoxaparin 40 mg subQ daily Consults: none Patient is observation status as her stay is not likely to exceed 2 midnights. FEN: saline lock, heart healthy low sodium diet, C/BMP and magnesium in the am. Dispo: probable discharge to home Code Status: Full code as discussed with patient
[2020-03-25 04:04] VITALS: BP 122/84; PULSE 55; RESP 18; TEMP 36.8; O2SAT 99
[2020-03-25 04:20] LABS: Add Manual Diff / Slide Review NO; Basophils Absolute Auto 100 /uL (0-100); Eosinophils Absolute Auto 100 /uL (0-450); Hematocrit 37.8 % (36-46); Hemoglobin 12.5 g/dL (12.0-16.0); Lymphocytes Absolute Auto 2700 /uL (1100-4500); Mean Corpuscular Volume 93.9 fL (80-100); Monocytes Absolute Auto 700 /uL (0-900); Monocytes Percent Auto 8.8 % (3-14); Neutrophils Absolute Auto 4000 /uL (1500-7000); Neutrophils Percent Auto 52.2 % (50-75); Platelet Count 344 X10^3/uL (150-400); Red Blood Cell Count 4.02 X10^6/uL (4.0-5.2); White Blood Cell Count 7.6 X10^3/uL (4.5-11.0)
[2020-03-25 04:26] LABS: Creatine Kinase 943 U/L (30-135)
[2020-03-25 04:39] LABS: Troponin I < 0.012 ng/mL (0.01-0.034)
[2020-03-25 04:41] LABS: Blood Urea Nitrogen 15 mg/dL (7-17); Calcium 9.2 mg/dL (8.4-10.2); Carbon Dioxide 35 mmol/L (22-32); Chloride 101 mmol/L (98-107); Cholesterol 200 mg/dL (140-199); Creatine Kinase MB 0.43 ng/mL (<2.37); Estimated Glomerular Filt Rate > 60.0 mL/min (>60); Glucose 97 mg/dL (80-110); HDL Cholesterol 64 mg/dL (40-60); HEMOLYSIS < 15 (0-50); LDL Cholesterol Calculated 107 mg/dL (<100); Potassium 4.3 mmol/L (3.4-5.1); Sodium 135 mmol/L (137-145); Triglycerides 143 mg/dL (35-150)
[2020-03-25 07:00] VITALS: O2SAT 99
[2020-03-25 08:00] VITALS: BP 126/65; PULSE 61; RESP 14; TEMP 36.6; O2SAT 100
[2020-03-25] MEDS: SODIUM CHLORIDE 0.9% 1,000 ML 100 ML IV (11:00)
[2020-03-25] MEDS: CLOPIDOGREL 75 MG TABLET PO (11:12)
[2020-03-25] MEDS: CITALOPRAM 10 MG TABLET 20 MG PO (11:12)
[2020-03-25] MEDS: ASPIRIN EC 81 MG TABLET PO (11:12)
[2020-03-25] MEDS: lisinopriL 10 MG TABLET 5 MG PO (11:13)
--- NOTE | 2020-03-25 11:33 | CM.DANOTE ---
Addendum entered by Alexandra Miller LPN 03/25/20 11:36: Pt is a 60 year old female who admitted last night to care of hospitalist team. Payer: Healthcare Management Full dx and POC remain in process. Met with pt and introduced self and role. Her sister was at bedside. Pt anticipates home when stable for same. She says the doctor has not yet told her when this might be. P: follow prn. Original Note: Discharge Planning/Care Management DCP: assessment: case received, EMR reviewed. DC to home order noted by Dr. Palafox. Discusssed in Team Rounds with Dr. 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 She noted that if pt did go today it would be much later in the day. CM Discharge Assessment Start: 03/25/20 11:32 Freq: Status: Active Protocol: Document 03/25/20 11:32 ITV (Rec: 03/25/20 11:32 ITV [id number]) Discharge Planning Assessment Advance Directives? No History Provided By Medical Record Prior Living Arrangements House Household Members none Independent with ADL's Yes Is patient alert and oriented? Yes Whiteboard Updated in Patient Room with Yes name and ext. # of Resource Agent
[2020-03-25 12:00] VITALS: BP 126/76; PULSE 64; RESP 17; TEMP 37.2; O2SAT 97
--- NOTE | 2020-03-25 12:01 | ST.IPIE ---
Visit Care Team Role Provider Type Simon Hardy MD Primary Care Provider Non-Staff Specialty: Medical Address: [address] [place] [address], [id number] Fax: Email: Tereso Juarez DO Emergency Provider Physician Referring Provider Specialty: Emergency Medicine Address: [address] [place] [address], [id number] Email: [email or web address] ENEDINA Pickard Admit Provider Physician Attending Provider Specialty: Internal Medicine Address: [address] [place] [address], [id number] Email: [email or web address] Past Medical History (Last Reviewed 03/25/20 @ 07:30 by Tereso Juarez DO) Anxiety (Medical) Essential hypertension (Medical) Low back pain (Medical) ST IP 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 Patient History PER H&P: Frances Wu is a 60 y.o. female with hypertension and anxiety who was in her usual state of health, working out at a local gym and presented with a one day history of a bed pressure in her head and headache, unable to speak and having blinding pain. She states something similar happened to this where she had been exercising and had a ?blinding headache and noticed that her right eye pupil was larger than the left. She stated that she was weak and had left arm pain and her hand was also aching she did have a stay tingling and sensation in her left hand and denied nausea or vomiting, shortness of breath, dysuria, abdominal pain, diarrhea or constipation . CT of the head and chest x- ray that were ordered in the emergency department were both negative for any acute process. MRI is pending later today. Referral Referring Physician Dr. Palafox Mental Status Mental Status Alert,Responsive,Cooperative Subjective Observations Subjective Pt was in room seated in bedside chair. Oral Motor Lips Function WFL Tongue Function Mild Impairment Lateralization mild lack of coordination Jaw Function WFL Soft Palate Function WFL Respiration/Phonation Phonation Quality WFL Loudness WFL Diadochokinetic Rates P^ Quality Mild Impairment Comments mild rhythmic dysfunction T^ Quality Mild Impairment Comments mild rhythmic dysfunction K^ Quality Mild Impairment Comments mild rhythmic dysfunction P^T^K^ Quality Mild Impairment Comments mild rhythmic dysfunction Speech Intelligibility Conversation Severity WFL Awareness/Strategy Use Description Type of awareness/use Uses consistently Other Pt states brain/mouth want to produce words by sound or syllables Findings Details Motor Speech Function Mild Impairment Type of Impairment Mild dysrhythmia of diadochokinesis and spoken language Assessment Details Assessment Pt presented with mild dysrhythima of spoken language that she was aware of. She also stated that her brain is trying to catch up, causing her to hesitate at the start of sentences or verbal productions (assessment). She is oriented x4, she looks to the right while conversing. During OME, she did make straight eye contact. Speech is 100% intelligible. No obvious word finding difficulty. No s/sx aphasia. Perhaps a mild dysarthria. Pt reported that she has had these symptoms in the past year approximately 4 times. She noted that this had resolved typically over 4-5 days. Pt reported that she was able to eat granola dry for breakfast with thin liquids. She denied any swallowing difficulty. Recommendations Therapy Recommendations If these s/sx do not resolve within 2-3 weeks, recommend pt be referred for outpatient speech therapy. Patient/Family Education Education Described results of evaluation,Patient Understanding
--- NOTE | 2020-03-25 13:43 | PT.IIE ---
Surgical History (Last Reviewed 03/25/20 @ 07:30 by Tereso Juarez DO) History of right cataract surgery Medical History (Last Reviewed 03/25/20 @ 07:30 by Tereso Juarez DO) Anxiety Essential hypertension Low back pain Physical Therapy Inpatient Evaluation/Re-Eval M1 PT/OT-IP Prior Functional Status Start: 03/25/20 08:35 Freq: NEEDED Status: Active Protocol: Document 03/25/20 11:13 DE (Rec: 03/25/20 11:53 DE [id number]) Medical Review Prior Functional Status Medical History Reviewed Yes Diet/Fluid Consistency Regular Communication WNL. No deficits noted. Able to makes needs known. Mobility and Gait IND for all mobility and amb without AD at baseline. No limitation to how far she could walk. Activities of Daily Living and IADL's IND for all ADLs and IADLs at baseline. Prior Functional Level (Other details) Pt reports she goes to the gym 3 times per week. Social History Household Members other Living Arrangements House Number of Floors (Floors) One Floor Number of Stairs To Enter/Railing? 4 TRUNG with no railing. 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 Housemate has fexible work schedule. Pt also has friends and family nearby who can help if needed. M2 PT-IP Current Condition Start: 03/25/20 08:35 Freq: NEEDED Status: Active Protocol: Document 03/25/20 11:13 DE (Rec: 03/25/20 11:53 DE [id number]) Physical Therapy Current Condition Current Condition Evaluation Date 03/25/20 Treatment Diagnosis Possible mini stroke; Decreased balance Onset Date 03/24/20 M3 PT-IP Subjective Start: 03/25/20 08:35 Freq: NEEDED Status: Active Protocol: Document 03/25/20 11:13 DE (Rec: 03/25/20 11:53 DE [id number]) Subjective Physical Therapy Visit Type Type Initial Evaluation Visit Start Time 09:27 Visit Stop Time 10:00 Total Visit Minutes 33 Notes SPT Rip led session under direct supervision of PT Mejia throughout the entire session. Number of TALENT DEVELOPMENT DIRECTOR Visits 0 Physical Therapy Visit Comments Patient Comments Pt is agreeable to do PT. M4 PT-IP Mobility and Gait Start: 03/25/20 08:35 Freq: NEEDED Status: Active Protocol: Document 03/25/20 11:13 DE (Rec: 03/25/20 11:53 DE [id number]) PT-Bed Mobility Assessment Rolling Level of Assist Standby Assistance Supine to Sit Supine to Sit Standby Assistance Scooting Scooting to Edge of Bed Standby Assistance PT-Transfer Assessment Sit to and From Stand Sit to and from Stand Contact Guard Assistance Equipment Transfer Assistive Device None,Gait Belt Orthotic/Prosthetic Devices or Brace: No Transfers Transfer Destination Chair Transfer Technique Stand Step Pivot Transfer Ability Level of Assist Contact Guard Assistance Comments Mobility Comments Pt was lying supine in bed with elevated HOB upon arrival . Pt completed supine to sit at R EOB from flat bed with SBA and use of BUE. No difficulty noted. Pt then performed sit to stand with CGA. Pt was slightly unsteady in standing initially but was able to recover herself and seemed steady after that. Pt amb ~500 ft total out in the hallway to the main staircase with CGA initially but SBA after ~50 ft. Pt did not have any major gait deviations and demonstrated fast gait speed. Pt c/o feeling a little foggy. Pt performed 9 steps down and up CGA without railing. Pt was slightly hesitant before going down the steps d/t her decreased balance. Pt demonstrated step-to pattern for the first 2 steps down and was able to progress to step- over for the rest of the steps down and up. Pt noted that ascending is easier than descending. Pt returned to her room and sat down on the chair SBA. Call light placed within reach. Gait Assessment Gait Gait Assistance Required: Standby Assistance,Contact Guard Assist Distance (Feet) 500 Assistive Devices Assistive Device None,Gait Belt Orthotic/Prosthetic Devices or Brace: No Gait Deviations General Gait Pattern Within Normal Limits Comments Gait Comments See mobility comments. Stair Climbing Assessment Evaluation Level of Assist On Stairs Contact Guard Assistance Devices Stair Climbing Assistive Devices None Technique/Endurance Stair Climbing Direction Ascend and Descend Stair Climbing Technique Step Over Step,Step to Step Number of Steps Climbed 9 Query Text: Stair Climbing Set # Repetitions (reps) 1 Comments Stair Climbing Comments See mobility comments. PT-Balance Assessment Sitting Balance and Reactions Static Sitting Balance Ability Normal Dynamic Sitting Balance Ability Normal Standing Balance and Reactions Static Standing Balance Ability Good Dynamic Standing Balance Ability Good M5 PT-IP Objective Assessments Start: 03/25/20 08:35 Freq: NEEDED Status: Active Protocol: Document 03/25/20 11:13 DE (Rec: 03/25/20 11:53 DE [id number]) Orientation Orientation/Cognition Level of Alertness Alert Orientation Name,Age,Birthday,Month,Date, Year,Day of Week,Place, Situation Language Function Ability No Deficits Noted Safety Awareness Understands Safety Issues Memory Description No Deficits Noted Comments Pt noted that she feels foggy. Gross Range of Motion Upper Extremity ROM Assessment Within Functional Limits Lower Extremity ROM Assessment Within Functional Limits Strength Upper Extremity Strength Assessment Within Functional Limits Lower Extremity Strength Assessment Within Functional Limits Coordination Assessment Gross Coordination Gross Coordination WNL Assessment Finger to Nose Test Normal Performance Pronation/Supination Test Normal Performance Foot Tapping Test Normal Performance Heel on Lao Test Normal Performance Sensation Assessment Sensation Gross Sensation WNL Light Touch Intact Muscle Tone Muscle Tone WNL Yes Other Assessments Other Other Assessments No deficits noted for smelling , hearing, and oculomotor screen. No facial droop, tongue deviation, or unilateral deficit observed. M6 PT-IP Treatment Start: 03/25/20 08:35 Freq: NEEDED Status: Active Protocol: Document 03/25/20 11:13 DE (Rec: 03/25/20 11:53 DE [id number]) Physical Therapy Treatment Education Education Provided Safety Other Treatments Other Treatment Performed Pt was educated on safety and role of PT. M7 PT-IP Assessment and Plan Start: 03/25/20 08:35 Freq: NEEDED Status: Active Protocol: Document 03/25/20 11:13 DE (Rec: 03/25/20 11:53 DE [id number]) PT Summary Assessment and Plan Potential Rehabilitation Potential Excellent Status of Condition at Evaluation Stable Summary Impairments Balance,Activity Tolerance Progress Towards Goals Safe For Discharge Assessment Summary Frances is a 60 yo female who was admitted to the hospital for possible mini stroke. At baseline, pt is IND for all mobility, amb, and ADLs without AD or limitations. Pt is active and goes to the gym 3 times per week. On evaluation, pt required CGA- SBA for all mobility, transfers, amb, and stair climbing. Pt demonstrated mild unsteadiness but was able to amb ~500 ft and perform 9 steps without railing. Pt is safe for d/c. PT anticipates pt will d/c home once medically cleared. Frequency of Treatment Frequency Of Treatment Discharge Recommendations To Nursing Amount of Assist Needed Standby Assistance Discharge Recommendations PT Discharge Recommendations Home Transportation Needs at Discharge Private Vehicle This evaluation session was led by SPT Rip Frausto and supervised by JEAN De Leon. This note has been reviewed and approved by JEAN De Leon
--- NOTE | 2020-03-25 14:37 | PC.NURSE ---
Am shift Pt is A/o x4, ambulatory in room. Denies pain. NIH 0, states she is fuzzy mentally at times, but no other concerns. NS @ 100 PIV, no other concerns at present. SBA. MRI this afternoon, if clear will be d/c today Echo done last week at [facility].
[2020-03-25 16:02] VITALS: BP 127/67; PULSE 74; RESP 16; TEMP 36.7
--- NOTE | 2020-03-25 17:02 | P.DS_ITS ---
History of Present Illness History of Present Illness Date Patient Seen: 03/24/20 Chief complaint: possible mini stroke last night, slurred speech Narrative: Written by Bettie MCCONNELL: Frances Wu is a 60 y.o. female with hypertension and anxiety who was in her usual state of health, working out at a local gym and presented with a one day history of a bed pressure in her head and headache, unable to speak and having blinding pain. She took 3 baby aspirin and then took a couple more after an hour and nothing had changed. She states something similar happened to this where she had been exercising and had a ?blinding headache and noticed that her right eye pupil was larger than the left. She does occasionally use albuterol she does not recall if she was using albuterol at that time. She stated that she was weak and had left arm pain and her hand was also aching she did have a stay tingling and sensation in her left hand and denied nausea or vomiting, shortness of breath, dysuria, abdominal pain, diarrhea or constipation. On 03/24, she was to have had right eye cataract removal with an implantation of IOL, however this was cancelled because she had drank coffee prior to the procedure. CT of the head and chest x-ray that were ordered in the emergency department were both negative for any acute process. She is afebrile, blood pressure 126/69, heart rate 54, respiratory rate 13 oxygen saturation of 100%% on room air, she weighs 73.7 kg with a BMI of 27.9. CBC largely within normal limits, BMP within normal limits, AST is mildly elevated 44, total creatinine kinase is 795, CK-MB was 0.1%, troponin was normal. Toxicology results were negative and COVID PCR was negative. Discharge Providers Provider Date of admission: 03/24/20 19:10 Discharge Date: 03/25/20 Primary care physician: Simon Hardy MD Consults: 03/24/20 22:44 Consult to Physical Therapy Evaluate & Treat Comment: confusion, ataxia, now resolved Physician Instructions: Evaluate and Treat 03/24/20 22:46 Consult to Speech Therapy Evaluate & Treat Comment: temporary dysarthria Physician Instructions: Evaluate and treat Discharge provider: Nelia Palafox DO Summary Hospital Course Discharge Diagnosis: 1. Probable acute TIA, present on admission. Resolved. 2. Hypertension, chronic, present on admission. Stable. 3. Hyperlipidemia, chronic, present on admission. Stable. 4. Prediabetes, chronic, present on admission. Stable. 5. Anxiety, chronic, present on admission. Stable. Hospital Course: Frances Wu is a 60-year-old female with a past medical history significant for hypertension and boderline hyperlipidemia, and anxiety who presented to the ED for sudden onset dysarthria with expressive aphasia (trouble word finding) and slurred speech with migraine headache and left arm numbness and tingling while working out at a gym. 1. Proabable acute TIA, present on admission. Resolved. -Differential diagnosis TIA versus complex migraine headache. -Patient presented with sudden onset dysarthria with expressive aphasia (trouble word finding) and slurred speech with migraine headache and left arm numbness and tingling while working out at a gym. -Initial NIH 0. Continued frequent neurological assessment. -CT brain without contrast did not demonstrate any acute intracranial abnormalities. -MR stroke protocol did not demonstrate acute infarction. Mild volume loss and small vessel ischemic disease. Negative cerebral MR angiography. No internal carotid artery stenosis bilaterally and patent bilateral vertebral arteries. -EKG demonstrated normal sinus rhythm without acute ischemic changes. Continued close monitoring on telemetry. Patient remained in sinus rhythm without ectopy throughout hospitalization. -Allowed for permissive hypertension x 24 hours. Ordered labetolol for BP > 220/110 and HR 60 bpm sustained for 15 minutes. Restarted home lisinopril 5 mg daily. -Risk stratified with hemoglobin A1C which was 9.2% indicative of poor glycemic control as below and fasting lipid panel which demonstrated mild hyperlipidemia: Total cholesterol 200, triglycerides 143, LDL 107 (goal < 100), and HDL 64. -Started and continued aspirin 81 mg daily atorvastatin 20 mg daily at bedtime for stroke prophylaxis. -Continued physical and speech therapy evaluation and treatment. Patient discha rged home with no needs. 2. Hypertension, chronic, present on admission. Stable. -Allowed for permissive hypertension x 24 hours. Ordered labetolol for BP > 220/110 and HR 60 bpm sustained for 15 minutes. -Continued home lisinopril 5 mg daily. 3. Hyperlipidemia, chronic, present on admission. Stable. -Fasting lipid panel demonstrated mild hyperlipidemia as above. -Started and continue atorvastatin 20 mg daily at bedtime to better control lipids and for stroke prophylaxis as above. 4. Prediabetes, chronic, present on admission. Stable. -Hemoglobin A1c 5.8% indicative of prediabetes. -Continued to monitor [facility] blood glucose checks and low dose correctional scale insulin. -Continued heart healthy/carbohydrate consistent diet.Recommended lifestyle modification including: diet and continued exercise although not so vigorous. 5. Anxiety, chronic, present on admission. Stable. -Continued home citalopram 20 mg daily. Exam Vital Signs (past 8 hours): - 03/25/20 12:00 03/25/20 16:02 Temperature 99.0 F 98.0 F Pulse Rate 64 74 Respiratory Rate 17 16 Blood Pressure 126/76 127/67 Pulse Oximetry 97 Oxygen Delivery Method Room Air Oxygen Flow Rate 0 Narrative Exam Narrative: General: Middle aged female sitting in bed and in no acute distress, well- developed, well-nourished, appropriately interactiv. HEENT: Normocephalic, atraumatic. External ears without defect. Pupils equal, round, and reactive to light and accommodation. Anicteric sclerae, moist conjunctivae, and no lid lag. Oropharynx free of erythema and cobble stoning with moist mucosa. No facial droop. Neck: Supple with full range of motion. No jugular venous distension. No bruits. No lymphadenopathy or thyromegaly. Cardiovascular: Regular rate and rhythm without murmurs, rubs, or gallops appreciated Pulmonary: Clear to auscultation bilaterally without crackles, wheezes, or rhonchi. Normal respiratory effort with no use of accessory muscles. Abdomen: Bowel tones present. Soft, nontender, nondistended. No hepatosplenome tomas or masses appreciated. Extremities: No clubbing, cyanosis, or edema. Skin: Normal temperature, turgor, and texture; no rash, ulcers, or subcutaneous nodules appreciated. Neurological: Cranial nerves grossly intact. No facial droop. No dysarthria, slurred speech or expressive aphasia. Normal muscle strength, tone, and bulk. Reflexes, coordination, and sensory function within normal limits. No known gait impairment. Psychiatric: Normal mood and affect. Alert and oriented to person, place, and time. Objective Labs Result Diagrams: 03/25/20 04:07 03/25/20 04:07 Labs: Laboratory Results - last 24 hr 03/24/20 03/24/20 03/24/20 16:19 16:19 18:21 WBC RBC Hgb Hct MCV MCH MCHC RDW Plt Count Neut % (Auto) Lymph % (Auto) [place] % (Auto) Eos % (Auto) Baso % (Auto) Neut # (Auto) Lymph # (Auto) [place] # (Auto) Eos # (Auto) Baso # (Auto) Sodium Potassium Chloride Carbon Dioxide BUN Creatinine Estimated GFR BUN/Creatinine Ratio Glucose Hemoglobin A1c 5.8 Calcium Magnesium 2.1 Total Creatine Kinase CK-MB (CK-2) CK-MB (CK-2) Rel Index Troponin I Triglycerides Cholesterol LDL Cholesterol, Calc HDL Cholesterol Nasal Screen MRSA (PCR) U Opiates 300ng/mL cut Negative Ur Oxycodone Screen Negative Urine Methadone Screen Negative Ur Barbiturates Screen Negative U Tricyclic Antidepress Negative Ur Phencyclidine Scrn Negative Ur Amphetamines Screen Negative U Methamphetamines Scrn Negative Ur MDMA Scrn (Ecstasy) Negative U Benzodiazepines Scrn Negative Urine Cocaine Screen Negative U Marijuana (THC) Screen Negative COVID-19 PCR 03/24/20 03/24/20 03/25/20 19:54 22:35 04:07 WBC 7.6 RBC 4.02 Hgb 12.5 Hct 37.8 MCV 93.9 MCH 31.0 MCHC 33.0 RDW 13.0 Plt Count 344 Neut % (Auto) 52.2 Lymph % (Auto) 36.0 [place] % (Auto) 8.8 Eos % (Auto) 2.0 Baso % (Auto) 1.0 Neut # (Auto) 4000 Lymph # (Auto) 2700 [place] # (Auto) 700 Eos # (Auto) 100 Baso # (Auto) 100 Sodium Potassium Chloride Carbon Dioxide BUN Creatinine Estimated GFR BUN/Creatinine Ratio Glucose Hemoglobin A1c Calcium Magnesium Total Creatine Kinase CK-MB (CK-2) CK-MB (CK-2) Rel Index Troponin I Triglycerides Cholesterol LDL Cholesterol, Calc HDL Cholesterol Nasal Screen MRSA (PCR) Negative for mrsa U Opiates 300ng/mL cut Ur Oxycodone Screen Urine Methadone Screen Ur Barbiturates Screen U Tricyclic Antidepress Ur Phencyclidine Scrn Ur Amphetamines Screen U Methamphetamines Scrn Ur MDMA Scrn (Ecstasy) U Benzodiazepines Scrn Urine Cocaine Screen U Marijuana (THC) Screen COVID-19 PCR Negative 03/25/20 03/25/20 04:07 04:07 WBC RBC Hgb Hct MCV MCH MCHC RDW Plt Count Neut % (Auto) Lymph % (Auto) [place] % (Auto) Eos % (Auto) Baso % (Auto) Neut # (Auto) Lymph # (Auto) [place] # (Auto) Eos # (Auto) Baso # (Auto) Sodium 135 L Potassium 4.3 Chloride 101 Carbon Dioxide 35 H BUN 15 Creatinine 0.88 Estimated GFR > 60.0 BUN/Creatinine Ratio 17.0 Glucose 97 Hemoglobin A1c Calcium 9.2 Magnesium 2.0 Total Creatine Kinase 943 H CK-MB (CK-2) 0.43 CK-MB (CK-2) Rel Index 0.0 L Troponin I < 0.012 Triglycerides 143 Cholesterol 200 H LDL Cholesterol, Calc 107 H HDL Cholesterol 64 H Nasal Screen MRSA (PCR) U Opiates 300ng/mL cut Ur Oxycodone Screen Urine Methadone Screen Ur Barbiturates Screen U Tricyclic Antidepress Ur Phencyclidine Scrn Ur Amphetamines Screen U Methamphetamines Scrn Ur MDMA Scrn (Ecstasy) U Benzodiazepines Scrn Urine Cocaine Screen U Marijuana (THC) Screen COVID-19 PCR Discharge Plan Discharge Plan Patient Disposition: Home Provider Discharge Comment: You are being discharged home. You did not have a stroke. You likely had a TIA versus a complex migraine. You have several stroke risk factors including: Hypertension, mildly elevated cholesterol, prediabetes, former smoker, family history. Please implement lifestyle modification including diet and exercise as discussed. Continue your lisinopril as prescribed and monitor your blood pressure closely with your primary care physician. You have been prescribed aspirin 81 mg daily and atorvastatin 20 mg daily at bedtime to help treat elevated cholesterol and prevention heart attack and stroke. Please follow-up with your primary care provider, Dr. Hardy, in the next 1 week regarding your hospitalization. Discharge orders & Medications Prescriptions: New atorvastatin [Lipitor] 20 mg Tablet 20 mg PO BEDTIME Qty: 30 RF: 0 Continued aspirin [Adult Aspirin Regimen] 81 mg tablet,delayed release (DR/EC) 81 mg PO DAILY RF: 0 citalopram 20 mg tablet 20 mg PO DAILY RF: 0 lisinopril 10 mg tablet 5 mg PO DAILY RF: 0 estradiol 2 mg (7.5 mcg /24 hour) ring 1 vaginalrin VAG [id number] Qty: 1 RF: 0 cyclobenzaprine 10 mg tablet 10 mg PO BID Qty: 20 RF: 0 Follow up/Referrals: Simon Hardy MD [Primary Care Provider] - 1 Week Diet/Activity/Treatments Diet: Low-fat, Low-sodium and Low-cholesterol Activity: Activity as tolerated and avoid overly vigorous exercise and stay well hydrated Visit Report/Discharge Packet Instructions: The Mediterranean Diet and Good Health, DI for Migraine, DI for Transient Ischemic Attack, Atorvastatin, Mediterranean Diet May Reduce the Risk of Stroke in People with High Risk o, DI for High Cholesterol-Adult Discharge Data Primary Care Provider: Simon Hardy Attending Provider: Bettie Bishop
--- NOTE | 2020-03-25 17:32 | PC.NURSE ---
3170- Patient discharged to home. Teaching material given and all questions answered. Patient was alert and oriented. No c/o pain or headache. Patient verbalized understanding of discharge plan. IV removed patient tolerated well. Discussed with patient if she has any s/s of stroke she needs to call 911 right away. Patient states she understands.
--- NOTE | 2020-03-30 18:43 | PC.NURSE ---
Late Entry; NS infusion initiated 03/25 at 11:00, stopped per MD discharge orders at 6:59.
== END 2020-03-25 17:30 | disposition home or self-care (01) ==
LOC: ED 18:08 → AC 19:11 → ICU 20:26
PROVIDERS: Emergency Medicine; Admitting Provider Nurse Practitioner Family; Emergency Provider Emergency Medicine; PCP Family Medicine; Referring Provider Emergency Medicine; Visit Provider Nurse Practitioner Family
DX: R47.81 Slurred speech (principal); I10 Essential (primary) hypertension; R20.0 Anesthesia of skin; F41.9 Anxiety disorder, unspecified; Z11.59 Encounter for screening for other viral diseases
CPT/HCPCS: 36415; 70450; 70548; 70553; 71045; 80048; 80053; 80061; 80305; 81003; 82550; 82553; 82962; 83036; 83735; 84484; 85025; 85610; 85730; 87635; 87797; 92522; 93005; 96360; 96361; 97161; 99284; G0378; J1650

== ENCOUNTER → 2020-04-11 14:27 | Outpatient (CLI) | payer OTHER, SELFPAY ==
[2020-03-24 21:59] VITALS: BMI 27.8
[2020-04-11 16:15] LABS: COVID19 -Nasal RAPID Negative (Negative)
== END ==
PROVIDERS: PCP Family Medicine; Visit Provider Physician Assistant
DX: Z11.59 Encounter for screening for other viral diseases (principal)
CPT/HCPCS: 87635

== ENCOUNTER 2020-04-13 10:05 | Day surgery (SDC) | payer OTHER, SELFPAY ==
--- NOTE | 2020-04-12 18:32 | PM.PREOP ---
Pre-operative Note COVID-19 COVID-19 status: Negative Interval Note History & Physical reviewed/Exam performed by Physician: Yes Changes to H&P: No
--- NOTE | 2020-04-13 09:15 | PM.OP.1 ---
Operative Date/Time/Diagnoses Date of procedure: 04/13/20 Procedure & Clinicians Procedure: Preoperative diagnoses: 1. Complex advanced diffuse cortical and nuclear sclerotic cataract 2. Astigmatism which is to be corrected with a toric intraocular lens implant. 3. Hypertension 4. Asthma 5. Status post LASIK Postoperative diagnoses: 1. Complex Cataract removal with phacoemulsification with toric posterior chamber intraocular lens implant placed and use of capsular dye. Procedure: Complex Phacoemulsification with posterior chamber toric intraocular lens implant. Capsular dye used. Surgeon: Faye Nolan MD Complications: None Specimen: None Implant: [id number] [place] 170 Blood loss: None Anesthesia: Retrobulbar with monitored standby Description of procedure: Patient presents with a complaint of decreased vision due to cataract which is affecting activities of daily living. She has had LASIK which does increase risk of intra-ocular lens power surprise and has astigmatism. She desires astigmatism correction with a near target of -2.00 The patient wants surgery to improve vision and astigmatism. 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 She understands the risk of surgery during COVID-19 epidemic and has tested negative for the virus. She wishes to proceed with surgery. The patient was taken to the operating room and proparacaine drops placed. Indelible ink mehta were placed at the 90 and 180 degree meridian. The patient was placed on the operating room table and given IV sedation. A retrobulbar block insert consisting of 6 cc of 2% xylocaine without epinephrine mixed half and half with 0.5% Marcaine with 1 cc of hyaluronidase added is placed between the medial and lateral 1/3 of the inferior orbital rim. The eye is manually massaged for 30 sec, prepped using Betadine solution, and draped in the usual sterile fashion. Temporal approach was made, a 1 mm side-port incision was made 90? from the proposed corneal wound. Phenylephrine 1.5% mixed with 1% xylocaine 0.2 cc was placed into the anterior chamber. Due to poor red reflex and diffuse cortical cataract the tissue Visudyne capsular dye was chosen to increase safety. An air bubble was placed and then the dye was placed into the anterior chamber. Excess air and dye was removed with BSS. Viscoat followed by Healon was then placed. A 2.6 mm clear incision with a 2.6 mm blade was placed at the 170 degree meridian. A 360 degree capsulorrhexis style capsulotomy was then performed with a [facility] by the capsular dye. Hydrodelineation and hydrodissection were performed. The phacoemulsification unit is introduced, and sculpting used to groove the central lens. It is then removed in chopping mode. Epi nucleus is removed with epinuclear mode and irrigation aspiration was used to remove the peripheral cortex. The posterior capsule is polished. The intraocular lens is selected, inspected, power confirmed, and placed in the posterior chamber at the desired meridian of 170?. The pupil was not constricted. The wound was stromally hydrated and tested for leaks, there was none and it was left sutureless. Vigamox 0.1 cc was placed into the anterior chamber. Kenalog 0.2 cc was placed in the superior subconjunctival space. A drop of antibiotic and was placed and the eye was patched and shielded. The patient was stable and returned to the recovery room in excellent condition. Dictated by: Faye Nolan MD Copy to: [facility] Same procedure as scheduled: Yes
[2020-04-13 11:23] VITALS: BP 125/74; PULSE 69; RESP 16; TEMP 37.1; O2SAT 99; BMI 27.4
[2020-04-13] MEDS: PROPARACAINE 0.5% OPHTH SOL 2 DROPS EYE-OP (11:35)
[2020-04-13] MEDS: CATARACT EYE COMPOUND (10 DROPS/SYRINGE) 3 DROPS EYE-OP (11:43)
--- NOTE | 2020-04-13 13:01 | SUR.OPER ---
Supine on eye stretcher, head on extension cradle secured with tape. Arms tucked at sides with blanket. Pillow under knees.
[2020-04-13] MEDS: PHENYLEPHRINE/LIDOCAINE VIAL (OR) 0.2 ML EYE-OP (13:04)
[2020-04-13] MEDS: MOXIFLOXACIN INJ 5 MG/ML VIAL EYE-OP (13:05)
[2020-04-13] MEDS: LIDOCAINE 2% 4 ML, BUPIVACAINE 0.5% (PF) 4 ML, HYALURONIDASE 150 UNIT INJ (13:06)
[2020-04-13] MEDS: CHONDROIDTIN/SOD HYALURONATE 1.05 ML SYRINGE INTRAOCULA (13:07)
[2020-04-13] MEDS: TRIAMCINOLONE 50 MG/5 ML VIAL INJ (13:07)
[2020-04-13] MEDS: HYALURONATE SODIUM 10 MG/ML SYRINGE INJ (13:08)
[2020-04-13] MEDS: BALANCED SALT IRRIG SOLN NO.2 500 ML, EPINEPHrine 1 MG IRR (13:08)
[2020-04-13] MEDS: ERYTHROMYCIN OPHTH 1 GM OINT 1 APPLIC EYE-LEFT (13:09)
[2020-04-13] MEDS: TRYPAN BLUE 0.5 ML SYRINGE INJ (13:09)
[2020-04-13 13:34] VITALS: BP 112/69; PULSE 66; RESP 16; TEMP 36.4; O2SAT 98
== END 2020-04-13 13:38 | disposition home or self-care (01) ==
LOC: OR 10:07
PROVIDERS: PCP Family Medicine; Referring Provider Ophthalmology; Visit Provider Ophthalmology
PROC: (CPT 66982; principal; 2020-04-13 11:45)
DX: H25.812 Combined forms of age-related cataract, left eye (principal); I10 Essential (primary) hypertension; J45.909 Unspecified asthma, uncomplicated; H52.202 Unspecified astigmatism, left eye
CPT/HCPCS: 66982; J0171; J2405; J2704; J3301; J3470; V2787

== ENCOUNTER → 2021-08-24 09:36 | Outpatient (CLI) | payer OTHER, SELFPAY ==
--- NOTE | 2021-08-24 | DI.RAD.S_ITS ---
PROCEDURE: XR CHEST 2V INDICATIONS: COUGH TECHNIQUE: 2 views of the chest were acquired. COMPARISON: [facility], CR, XR CHEST 1V, 03/24/2020, 14:58. FINDINGS: Surgical changes and devices: None. Lungs and pleura: Lungs are clear. No pleural effusions or pneumothorax. Mediastinum: Mediastinal contours are normal. Heart size is normal. Bones and chest wall: No suspicious bony abnormalities. Soft tissues appear unremarkable. IMPRESSION: 1. No acute cardiopulmonary disease. Dictated by: Rip Childress M.D. on 08/24/2021 at 13:44 Approved by: Rip Childress M.D. on 08/24/2021 at 13:47
== END ==
PROVIDERS: PCP Internal Medicine; Referring Provider Internal Medicine; Visit Provider Internal Medicine
DX: R05.9 Cough, unspecified (principal)
CPT/HCPCS: 71046

== ENCOUNTER 2024-01-09 12:43 | Emergency (ER) | payer OTHER, SELFPAY ==
[2024-01-09] VITALS (15 sets, daily range): BP systolic 129–186; BP diastolic 74–102; PULSE 54–69; RESP 14–24; TEMP 36.9; O2SAT 93–99; BMI 26.6
--- NOTE | 2024-01-09 12:50 | DI.RAD.S_ITS ---
PROCEDURE: XR CHEST 1V INDICATIONS: Possible stroke TECHNIQUE: One view of the chest was acquired. COMPARISON: Located [facility], CR, XR CHEST 2V, 08/24/2021, 9:36. FINDINGS: Surgical changes and devices: None. Lungs and pleura: Lungs are clear. No pleural effusions or pneumothorax. Mediastinum: Mediastinal contours appear normal. Heart size is normal. Bones and chest wall: No suspicious bony lesions. Overlying soft tissues appear unremarkable. IMPRESSION: No acute pulmonary process. Dictated by: Georgie Romero M.D. on 01/09/2024 at 15:35 Approved by: Georgie Romero M.D. on 01/09/2024 at 15:35
--- NOTE | 2024-01-09 12:50 | EKG_ITS ---
[id number] [address] Test Date: 2024-01-09 Pat Name: Frances Cheng Department: [facility] Room: Gender: Female [employer]: BEVERLEY : 1960 Requested By: Order Number: [id number] Reading MD: Conner Dunlap MD Measurements Intervals Bard Rate: 65 P: 67 GA: 136 QRS: 12 QRSD: 92 T: 8 QT: 404 QTc: 420 Interpretive Statements Normal sinus rhythm Septal infarct , age undetermined Electronically Signed On 01-09-2024 13:44:10 PDT by Conner Dunlap MD
--- NOTE | 2024-01-09 12:56 | DI.CT.S_ITS ---
PROCEDURE: CT HEAD/BRAIN WO CON INDICATIONS: difficulty speaking last night,3rd episode of this in 2 week TECHNIQUE: Noncontrast 4.5 mm thick angled axial sections acquired from the foramen magnum to the vertex, with coronal and sagittal reformats. For radiation dose reduction, the following was used: automated exposure control, adjustment of mA and/or kV according to patient size. COMPARISON: [facility], CT, CT HEAD/BRAIN WO CON, 03/24/2020, 15:59. FINDINGS: Image quality: Diagnostic. CSF spaces: Basal cisterns are patent. No extra-axial fluid collections. The ventricles are symmetric in size and shape. Brain: No intracranial bleeds or masses. There is cerebral volume loss for age, with resultant ventricular and sulcal prominence. There are periventricular and deep white matter chronic small vessel ischemic changes. There is intracranial internal carotid artery atherosclerosis. Skull and face: Calvarium and visualized facial bones appear intact, without suspicious lesions. Sinuses: Visualized sinuses and mastoids are clear. IMPRESSION: No acute intracranial pathology. Dictated by: Cam Ambrocio M.D. on 01/09/2024 at 15:24 Approved by: Cam Ambrocio M.D. on 01/09/2024 at 15:26
--- NOTE | 2024-01-09 12:56 | DI.CT.S_ITS ---
PROCEDURE: CT ANGIO HEAD AND NECK INDICATIONS: difficulty speaking last night,3rd episode of this in 2 week TECHNIQUE: After the administration of intravenous contrast, 1 mm thick sections acquired from the aortic arch through the [place] of [place]. 3-dimensional ycklidw-xoatxzyfl-hoghhczive (MIP) and/or volume rendering reformats were acquired of the central intracranial vasculature and neck separately. For radiation dose reduction, the following was used: automated exposure control, adjustment of mA and/or kV according to patient size. COMPARISON: None. FINDINGS: Image quality: Diagnostic. BRAIN: Please refer to same day CT of the head. HEAD CT ANGIOGRAPHY: Anterior circulation: Intracranial internal carotid arteries are normal in size and flow. The flow within the paired anterior cerebral arteries is normal and symmetric. The flow within the middle cerebral arteries is normal and symmetric. The anterior communicating artery is seen. No aneurysms are seen. Posterior circulation: Left vertebral artery is dominant and forms the basilar artery. Right vertebral artery terminates into the PICA. Flow within the posterior cerebral arteries is normal and symmetric. No aneurysms are seen. NECK CT ANGIOGRAPHY: Carotid system: The great vessels demonstrate a conventional anatomy as they arise from the aortic arch. The origins of the common carotid arteries appear patent. The common carotid arteries demonstrate normal caliber and courses. The bifurcation regions are both widely patent. The internal carotid arteries demonstrate normal calibers and courses. Posterior circulation: The origins of the vertebral arteries both appear widely patent. The more superior extracranial portions of both vertebral arteries also demonstrate normal courses and calibers. Left vertebral artery is dominant and forms the basilar artery. Right vertebral artery terminates into the PICA. Soft tissues: Visualized neck soft tissues demonstrate no suspicious abnormalities. Bones: No suspicious bony lesions. Visualized cervical spine appears normally aligned. IMPRESSION: No significant intracranial arterial abnormality is seen. No significant abnormality is seen within the arteries of the neck. Any quantitative measurements of stenosis were performed using NASCET criteria. Dictated by: Cam Ambrocio M.D. on 01/09/2024 at 15:35 Approved by: Cam Ambrocio M.D. on 01/09/2024 at 15:40
--- NOTE | 2024-01-09 13:03 | PC.NURSE ---
Pt arrived to ED today after experiencing stroke-like sx yesterday at dinner at 1900. Pt states that her left side became weak, tingly and she began to have slurry speech and could not put coherent sentences together. Pt states her sx lasted until approximately 2030. Pt states that she is still feeling fuzzy and brain fog. Pt reports that she called her pcp and was advised to come to ED for full work up. A&Ox4 and speaking in full clear sentences. Denies HERNANDEZ, CP, n/v, SOB.
[2024-01-09 13:13] LABS: Add Manual Diff / Slide Review NO; Basophils Absolute Auto 100 /uL (0-100); Basophils Percent Auto 0.6 % (0-2); Eosinophils Absolute Auto 100 /uL (0-450); Eosinophils Percent Auto 1.1 % (2-4); Hematocrit 39.4 % (36-46); Hemoglobin 13.3 g/dL (12.0-16.0); Lymphocytes Absolute Auto 3000 /uL (1100-4500); Lymphocytes Percent Auto 33.3 % (25-40); Mean Corpuscular HGB Conc 33.7 % (30-36); Mean Corpuscular Hemoglobin 31.8 PG (26-34); Mean Corpuscular Volume 94.6 fL (80-100); Monocytes Absolute Auto 700 /uL (0-900); Monocytes Percent Auto 8.1 % (3-14); Neutrophils Absolute Auto 5200 /uL (1500-7000); Neutrophils Percent Auto 56.9 % (50-75); Platelet Count 402 X10^3/uL (150-400); Red Blood Cell Count 4.17 X10^6/uL (4.0-5.2); Red Cell Distribution Width 13.1 % (11.6-14.8)
[2024-01-09 13:17] LABS: Prothrombin Time 10.9 SECONDS (9.4-12.5)
[2024-01-09 13:20] LABS: PTT Partial Thromboplastin Tim 31 SECONDS (25.1-36.5)
[2024-01-09 13:37] LABS: Alanine Aminotransferase 15 IU/L (<35); Albumin 4.3 g/dL (3.5-5.0); Albumin Globulin Ratio 1.4 (1.0-2.8); Alkaline Phosphatase 58 U/L (38-126); Aspartate Aminotransferase 31 IU/L (14-36); BUN Creatinine Ratio 17.6 (6-22); Bilirubin Total 0.5 mg/dL (0.2-1.3); Blood Urea Nitrogen 16 mg/dL (7-17); Calcium 9.4 mg/dL (8.4-10.2); Carbon Dioxide 31 mmol/L (22-32); Chloride 99 mmol/L (98-107); Creatine Kinase 43 U/L (30-135); Estimated Glomerular Filt Rate > 60 mL/min (>60); Globulin 3.1 g/dL (1.7-4.1); Glucose 107 mg/dL (80-110); HEMOLYSIS < 15 (0-50); Magnesium 2.1 mg/dL (1.6-2.3); Potassium 4.6 mmol/L (3.4-5.1); Sodium 136 mmol/L (137-145); Total Protein 7.4 g/dL (6.3-8.2)
[2024-01-09 13:47] LABS: Troponin I < 0.012 ng/mL (0.01-0.034)
--- NOTE | 2024-01-09 14:02 | ED.NEUROSD ---
HPI - Neuro Symptoms/Deficit General Chief Complaint: Neuro Symptoms/Deficit Stated Complaint: stroke like symptoms Time Seen by Provider: 01/09/24 13:50 Source: patient Mode of arrival: Ambulatory History of Present Illness HPI Narrative: 64-year-old right-handed female with history of recurrent migraine headaches, no prior strokes known, however in the past has had intermittent trouble with speaking, believes she had a stroke workup 2 years ago, no specific diagnosis recalled, no sequelae recalled, now with 2 weeks duration of brief 1 hour episodes slurred speech, in isolation, not associated with any trouble swallowing, no weakness to face arm or leg, no facial droop known, no visual complaints, no numbness or tingling to face arm or leg. Not necessarily associated with headaches. No visual field deficits. No seizure shaking activities. No associated shortness of breath or chest pain or palpitation symptoms. Symptoms seemed to resolve on their own, not particularly related to position, nothing seems to bring it on, nothing seems to make it go away, but the episode seemed to last about 1 hour. Last episode was last night while eating dinner, witnessed by , who noticed the patient seemed to have slight slurred speech. No drug or alcohol use at that time. On Anticoagulants: No Related Data Home Medications Medication Instructions Recorded Confirmed citalopram 20 mg tablet 20 mg PO DAILY 06/07/18 04/13/20 lisinopril 10 mg tablet 5 mg PO DAILY 06/07/18 04/13/20 aspirin 81 mg tablet,delayed 81 mg PO DAILY 06/27/18 04/13/20 release (Adult Aspirin Regimen) Previous Rx's Medication Instructions Recorded estradiol 2 mg (7.5 mcg/24 hour) 1 vaginalrin vaginal [id number] #1 ea 02/04/19 vaginal ring atorvastatin 20 mg tablet (Lipitor) 20 mg PO BEDTIME #30 tabs 03/25/20 Allergies Allergy/AdvReac Type Severity Reaction Status Date / Time Sulfa (Sulfonamide Allergy Verified 01/09/24 12:45 Antibiotics) Review of Systems Review of Systems Narrative: see HPI Hematologic/Lymphatic On Anticoagulants: No Patient History Medical History (Updated 01/09/24 @ 18:41 by Sudheer Helm MD) Osteopenia (~1991) Low testosterone Anxiety Essential hypertension Low back pain Surgical History (Updated 09/08/20 @ 20:07 by Bettie Jeronimo) Anesthesia History of total hysterectomy (~1991) History of right cataract surgery Family History (Updated 09/08/20 @ 20:12 by Bettie Jeronimo) Mother Myocardial infarction Hx of coronary artery bypass surgery Hypertension History of heart disease Father Cancer Brother Drug addict Grandfather Stroke Grandmother Cancer Grandfather History of heart disease Grandmother History of emphysema Social History household members: friend(s) and none Smoking Status: Never smoker Smoking Status: Never smoker alcohol intake frequency: a few times a week Substance Use Type: does not use Exam Narrative Exam Narrative: GENERAL: Well-developed patient, in mild distress. HEAD: Atraumatic. Normocephalic. EYES: Pupils equal round and reactive. Extraocular motions intact. No scleral icterus. No injection or drainage. ENT: Nose without bleeding, purulent drainage. Throat without erythema, tonsillar hypertrophy or exudate. Airway patent. NECK: Trachea midline. Non tender CARDIOVASCULAR: Regular rate and rhythm without murmurs, gallops, or rubs. RESPIRATORY: Clear to auscultation. Breath sounds equal bilaterally. No wheezes, rales, or rhonchi. GASTROINTESTINAL: Abdomen soft, non-tender, nondistended. EXTREMITIES: No edema or joint tenderness. BACK: Nontender without deformity or crepitance. No flank tenderness. NEURO: AOx3. Cranial nerves unremarkable. at bedside and feels that she is at her baseline speech, as does the patient. Motor 5/5 upper extremities, motor 5/5 lower extremities. Ebrchj-ow-ycef testing unremarkable bilateral. SKIN: No rash or erythema of visible areas Initial Vital Signs Initial Vital Signs: Vital Signs Temperature 98.4 F 01/09/24 12:46 Pulse Rate 66 01/09/24 12:46 Respiratory Rate 18 01/09/24 12:46 Blood Pressure 186/93 H 01/09/24 12:46 Pulse Oximetry 98 01/09/24 12:46 Oxygen Delivery Method Room Air 01/09/24 12:46 Course Orders Ordered: ED Orders 01/09/24 12:50 XR chest 1V Stat EKG-12 Lead Stat 01/09/24 12:52 Complete Blood Count AUTO DIFF Stat Comprehensive Metabolic Panel Stat Magnesium Stat PTT Partial Thromboplastin Osmel Stat Prothrombin Time INR Stat Troponin & CK Cardiac Panel Stat 01/09/24 12:56 CT angio head and neck Stat CT head/brain wo con Stat 01/09/24 14:47 Troponin I Stat 01/09/24 14:56 Urinalysis and Microscopic Stat Urine Drug Screen, Rapid Stat 01/09/24 15:50 MR head/brain wo con Stat Discontinued Medications Aspirin (Aspirin Ec 325 Mg Tablet) 325 mg PO NOW ONE Stop: 01/09/24 18:39 Last Admin: 01/09/24 18:48 Dose: 325 mg Documented By: KATHERINE Ondansetron HCl (Ondansetron 4 Mg/2 Ml Inj) 4 mg IV NOW PRN PRN Reason: Nausea And Vomiting Ondansetron HCl (Ondansetron 4 Mg Odt) 4 mg SL NOW PRN PRN Reason: Nausea And Vomiting Vital Signs Vital signs: Vital Signs - 8 hr 01/09/24 12:50 01/09/24 12:53 01/09/24 12:53 Pulse Rate 69 65 Respiratory Rate 14 Blood Pressure 178/102 H Pulse Oximetry 98 99 01/09/24 13:00 01/09/24 13:00 01/09/24 13:30 Pulse Rate 66 58 L Respiratory Rate 16 15 Blood Pressure 143/75 H Pulse Oximetry 96 94 01/09/24 13:30 01/09/24 14:00 01/09/24 14:00 Pulse Rate 57 L Respiratory Rate 24 Blood Pressure 129/74 138/77 Pulse Oximetry 93 01/09/24 14:36 01/09/24 14:37 01/09/24 14:37 Pulse Rate 62 62 Respiratory Rate 18 Blood Pressure 130/100 H Pulse Oximetry 94 94 01/09/24 16:39 01/09/24 16:41 01/09/24 16:41 Pulse Rate 58 L Respiratory Rate Blood Pressure 154/74 H Pulse Oximetry 98 98 01/09/24 17:00 01/09/24 17:30 01/09/24 18:00 Pulse Rate 56 L 55 L 54 L Respiratory Rate Blood Pressure Pulse Oximetry 98 96 97 01/09/24 18:30 01/09/24 18:49 Pulse Rate 56 L Respiratory Rate Blood Pressure 147/74 H Pulse Oximetry 97 MDM - Neuro Symptoms/Deficit Lab Data Attestation: I reviewed the patient's lab results. 01/09/24 12:52 01/09/24 12:52 Labs: Lab Results 01/09/24 01/09/24 01/09/24 Range/Units 12:52 14:47 14:56 WBC 9.0 (4.5-11.0) X10^3/uL RBC 4.17 (4.0-5.2) X10^6/uL Hgb 13.3 (12.0-16.0) g/dL Hct 39.4 (36-46) % MCV 94.6 (80-100) fL MCH 31.8 (26-34) PG MCHC 33.7 (30-36) % RDW 13.1 (11.6-14.8) % Plt Count 402 H (150-400) X10^3/uL Neut % (Auto) 56.9 (50-75) % Lymph % (Auto) 33.3 (25-40) % [place] % (Auto) 8.1 (3-14) % Eos % (Auto) 1.1 L (2-4) % Baso % (Auto) 0.6 (0-2) % Neut # (Auto) 5200 (1561-5017) /uL Lymph # (Auto) 3000 (0439-5374) /uL [place] # (Auto) 700 (0-900) /uL Eos # (Auto) 100 (0-450) /uL Baso # (Auto) 100 (0-100) /uL PT 10.9 (9.4-12.5) SECONDS INR 1.0 (0.9-1.3) APTT 31 (25.1-36.5) SECONDS Sodium 136 L (137-145) mmol/L Potassium 4.6 (3.4-5.1) mmol/L Chloride 99 (98-107) mmol/L Carbon Dioxide 31 (22-32) mmol/L BUN 16 (7-17) mg/dL Creatinine 0.91 (0.52-1.04) mg/dL Estimated GFR > 60 (>60) mL/min BUN/Creatinine Ratio 17.6 (6-22) Glucose 107 (80-110) mg/dL Calcium 9.4 (8.4-10.2) mg/dL Magnesium 2.1 (1.6-2.3) mg/dL Total Bilirubin 0.5 (0.2-1.3) mg/dL AST 31 (14-36) IU/L ALT 15 (<35) IU/L Alkaline Phosphatase 58 (38-126) U/L Total Creatine Kinase 43 (30-135) U/L Troponin I < 0.012 < 0.012 (0.01-0.034) ng/mL Total Protein 7.4 (6.3-8.2) g/dL Albumin 4.3 (3.5-5.0) g/dL Globulin 3.1 (1.7-4.1) g/dL Albumin/Globulin Ratio 1.4 (1.0-2.8) Urine Color Yellow Urine Appearance Clear Urine pH 7.0 (4.5-8.0) Ur Specific [place] <=1.005 (1.000-1.035) Urine Protein Negative (Negative) Urine Glucose (UA) Negative (Negative) g/dL Urine Ketones Negative (NEGATIVE) Urine Occult Blood Negative (Negative) Urine Nitrate Negative (Negative) Urine Bilirubin Negative (NEGATIVE) Urine Urobilinogen 0.2 (0.2) E.U./dL Ur Leukocyte Esterase Negative (NEGATIVE) Urine RBC 0-1/hpf (0-5/HPF) Urine WBC 0-1/hpf (0-5/HPF) Ur Squamous Epith Cells 0-1 /hpf (0-5/HPF) Urine Bacteria Occasional (0-1) (None) Ur Culture Indicated? Cult not indicated Vol Urine Centrifuged 10ml (spun) U Opiates 300ng/mL cut Negative (Negative) Ur Oxycodone Screen Negative (Negative) Urine Methadone Screen Negative (Negative) Ur Barbiturates Screen Negative (Negative) U Tricyclic Antidepress Negative (Negative) Ur Phencyclidine Scrn Negative (Negative) Ur Amphetamines Screen Negative (Negative) U Methamphetamines Scrn Negative (Negative) Ur MDMA Scrn (Ecstasy) Negative (Negative) U Benzodiazepines Scrn Negative (Negative) Urine Cocaine Screen Negative (Negative) U Marijuana (THC) Screen Negative (Negative) Urine Specific [place] (Normal) Ur Creatinine (Normal) 01/09/24 Range/Units 14:56 WBC (4.5-11.0) X10^3/uL RBC (4.0-5.2) X10^6/uL Hgb (12.0-16.0) g/dL Hct (36-46) % MCV (80-100) fL MCH (26-34) PG MCHC (30-36) % RDW (11.6-14.8) % Plt Count (150-400) X10^3/uL Neut % (Auto) (50-75) % Lymph % (Auto) (25-40) % [place] % (Auto) (3-14) % Eos % (Auto) (2-4) % Baso % (Auto) (0-2) % Neut # (Auto) (6859-3663) /uL Lymph # (Auto) (8530-3925) /uL [place] # (Auto) (0-900) /uL Eos # (Auto) (0-450) /uL Baso # (Auto) (0-100) /uL PT (9.4-12.5) SECONDS INR (0.9-1.3) APTT (25.1-36.5) SECONDS Sodium (137-145) mmol/L Potassium (3.4-5.1) mmol/L Chloride (98-107) mmol/L Carbon Dioxide (22-32) mmol/L BUN (7-17) mg/dL Creatinine (0.52-1.04) mg/dL Estimated GFR (>60) mL/min BUN/Creatinine Ratio (6-22) Glucose (80-110) mg/dL Calcium (8.4-10.2) mg/dL Magnesium (1.6-2.3) mg/dL Total Bilirubin (0.2-1.3) mg/dL AST (14-36) IU/L ALT (<35) IU/L Alkaline Phosphatase (38-126) U/L Total Creatine Kinase (30-135) U/L Troponin I (0.01-0.034) ng/mL Total Protein (6.3-8.2) g/dL Albumin (3.5-5.0) g/dL Globulin (1.7-4.1) g/dL Albumin/Globulin Ratio (1.0-2.8) Urine Color Urine Appearance Urine pH Normal (4.5-8.0) Ur Specific [place] (1.000-1.035) Urine Protein (Negative) Urine Glucose (UA) (Negative) g/dL Urine Ketones (NEGATIVE) Urine Occult Blood (Negative) Urine Nitrate (Negative) Urine Bilirubin (NEGATIVE) Urine Urobilinogen (0.2) E.U./dL Ur Leukocyte Esterase (NEGATIVE) Urine RBC (0-5/HPF) Urine WBC (0-5/HPF) Ur Squamous Epith Cells (0-5/HPF) Urine Bacteria (None) Ur Culture Indicated? Vol Urine Centrifuged U Opiates 300ng/mL cut (Negative) Ur Oxycodone Screen (Negative) Urine Methadone Screen (Negative) Ur Barbiturates Screen (Negative) U Tricyclic Antidepress (Negative) Ur Phencyclidine Scrn (Negative) Ur Amphetamines Screen (Negative) U Methamphetamines Scrn (Negative) Ur MDMA Scrn (Ecstasy) (Negative) U Benzodiazepines Scrn (Negative) Urine Cocaine Screen (Negative) U Marijuana (THC) Screen (Negative) Urine Specific [place] Normal (Normal) Ur Creatinine Normal (Normal) Point of Care Testing Glucose POC 100 Imaging Data Chest x-ray: Radiologist's Impression: [address] [address] XRay Report Signed Patient: Frances Cheng MR#: [id number] : 1960 Acct:[id number] Age/Sex: 64 / F Date of Service: 01/09/24 Loc: ED Accession Number: [id number] Procedure: XR chest 1V Ordering Provider: Sudheer Helm MD PROCEDURE: XR CHEST 1V INDICATIONS: Possible stroke TECHNIQUE: One view of the chest was acquired. COMPARISON: [facility], , XR CHEST 2V, 08/24/2021, 9:36. FINDINGS: Surgical changes and devices: None. Lungs and pleura: Lungs are clear. No pleural effusions or pneumothorax. Mediastinum: Mediastinal contours appear normal. Heart size is normal. Bones and chest wall: No suspicious bony lesions. Overlying soft tissues appear unremarkable. IMPRESSION: No acute pulmonary process. Dictated by: Georgie Romero M.D. on 01/09/2024 at 15:35 Approved by: Georgie Romero M.D. on 01/09/2024 at 15:35 CT scan - head: Radiologist's Impression: [address] [address] [address] Scan Report Signed Patient: Frances Cheng MR#: [id number] : 1960 Acct:[id number] Age/Sex: 64 / F Date of Service: 01/09/24 Loc: ED Accession Number: [id number] Procedure: CT head/brain wo con Ordering Provider: Sudheer Helm MD PROCEDURE: CT HEAD/BRAIN WO CON INDICATIONS: difficulty speaking last night,3rd episode of this in 2 week TECHNIQUE: Noncontrast 4.5 mm thick angled axial sections acquired from the foramen magnum to the vertex, with coronal and sagittal reformats. For radiation dose reduction, the following was used: automated exposure control, adjustment of mA and/or kV according to patient size. COMPARISON: [facility], CT, CT HEAD/BRAIN WO CON, 03/24/2020, 15:59. FINDINGS: Image quality: Diagnostic. CSF spaces: Basal cisterns are patent. No extra-axial fluid collections. The ventricles are symmetric in size and shape. Brain: No intracranial bleeds or masses. There is cerebral volume loss for age, with resultant ventricular and sulcal prominence. There are periventricular and deep white matter chronic small vessel ischemic changes. There is intracranial internal carotid artery atherosclerosis. Skull and face: Calvarium and visualized facial bones appear intact, without suspicious lesions. Sinuses: Visualized sinuses and mastoids are clear. IMPRESSION: No acute intracranial pathology. Dictated by: Cam Ambrocio M.D. on 01/09/2024 at 15:24 Approved by: Cam Ambrocio M.D. on 01/09/2024 at 15:26 CTA - brain/neck: Radiologist's Impression: [place] [address] CT Scan Report Signed Patient: Frances Cheng MR#: [id number] : 1960 Acct:[id number] Age/Sex: 64 / F Date of Service: 01/09/24 Loc: ED Accession Number: [id number] Procedure: CT angio head and neck Ordering Provider: Sudheer Helm MD PROCEDURE: CT ANGIO HEAD AND NECK INDICATIONS: difficulty speaking last night,3rd episode of this in 2 week TECHNIQUE: After the administration of intravenous contrast, 1 mm thick sections acquired from the aortic arch through the [place] [facility] [place]. 3-dimensional wtehiup-bcigagmla-iwppqetnuq (MIP) and/or volume rendering reformats were acquired of the central intracranial vasculature and neck separately. For radiation dose reduction, the following was used: automated exposure control, adjustment of mA and/or kV according to patient size. COMPARISON: None. FINDINGS: Image quality: Diagnostic. BRAIN: Please refer to same day CT of the head. HEAD CT ANGIOGRAPHY: Anterior circulation: Intracranial internal carotid arteries are normal in size and flow. The flow within the paired anterior cerebral arteries is normal and symmetric. The flow within the middle cerebral arteries is normal and symmetric. The anterior communicating artery is seen. No aneurysms are seen. Posterior circulation: Left vertebral artery is dominant and forms the basilar artery. Right vertebral artery terminates into the PICA. Flow within the posterior cerebral arteries is normal and symmetric. No aneurysms are seen. NECK CT ANGIOGRAPHY: Carotid system: The great vessels demonstrate a conventional anatomy as they arise from the aortic arch. The origins of the common carotid arteries appear patent. The common carotid arteries demonstrate normal caliber and courses. The bifurcation regions are both widely patent. The internal carotid arteries demonstrate normal calibers and courses. Posterior circulation: The origins of the vertebral arteries both appear widely patent. The more superior extracranial portions of both vertebral arteries also demonstrate normal courses and calibers. Left vertebral artery is dominant and forms the basilar artery. Right vertebral artery terminates into the PICA. Soft tissues: Visualized neck soft tissues demonstrate no suspicious abnormalities. Bones: No suspicious bony lesions. Visualized cervical spine appears normally aligned. IMPRESSION: No significant intracranial arterial abnormality is seen. No significant abnormality is seen within the arteries of the neck. Any quantitative measurements of stenosis were performed using NASCET criteria. Dictated by: Cam Ambrocio M.D. on 01/09/2024 at 15:35 Approved by: Cam Ambrocio M.D. on 01/09/2024 at 15:40 MRI brain noncontrast: Radiologist's Impression: [place] [address] Magnetic Resonance Report Signed Patient: Frances Cheng MR#: [id number] : 1960 Acct:[id number] Age/Sex: 64 / F Date of Service: 01/09/24 Loc: ED Accession Number: [id number] Procedure: MR head/brain wo con Ordering Provider: Sudheer Helm MD PROCEDURE: MR HEAD/BRAIN WO CON INDICATIONS: stroke symptoms, intermitt slurred speech TECHNIQUE: Non-contrast axial T1 spin echo, axial T2 fast spin echo, sagittal and axial FLAIR, coronal T2 fast spin echo, axial gradient echo, axial diffusion and ADC through the brain. COMPARISON: None. FINDINGS: Image quality: Excellent. CSF spaces: Ventricles appear symmetric in size and shape. Basal cisterns are patent. No extra-axial fluid collections. Brain: No intracranial bleeds or mass effects. There is cerebral volume loss for age. There are mild, age-appropriate periventricular and deep white matter chronic small vessel ischemic changes. Brainstem appears normal. Diffusion-weighted images show no acute infarct. No chronic ischemic insults. Normal intravascular flow voids are present. Skull and face: Calvarial bone marrow is normal in signal. Orbits are normal. Sinuses: Sinuses and mastoids are clear. IMPRESSION: Negative brain MRI for patient age. No acute intracranial process. Dictated by: Steven Duncan M.D. on 01/09/2024 at 17:47 Approved by: Steven Duncan M.D. on 01/09/2024 at 17:48 ECG Data Attestation: I personally reviewed and interpreted this ECG as follows: Interpretation: Normal sinus rhythm with rate of 65, no obvious ST segment elevation or depression changes. T-wave inversion lead 3, flat T-waves lead F, upright in lead 2. IL 136, QRS 92, QTC 420. MDM Narrative Medical decision making narrative: 64-year-old right-handed female with intermittent slurred speech in isolation, 1 hour episodes, 3 episodes last couple of weeks, similar episode 2 years ago with apparently negative workup per patient, who does not take any chronic blood thinner medication, no recent aspirin or other antiplatelets. Nonfocal neuro exam. EKG shows normal sinus rhythm. CT head noncontrast study, CT angiogram head and neck vessels. Screening labs unremarkable. CT/CTA studies being performed. CT Head negative. CTA Head/Neck vessels no thrombosis or siginificant narrowing. See radiology reports. MRI Brain no acute changes. See radiology reports. PO aspirin. Advised aspirin daily. Further workup as outpatient, consider neurology consult outpatient. Home with , return precautions discussed Critical Care Time Critical Care Time Critical Care Time: Yes Total Critical Care Time: 31 Attestation: The high probability of a clinically significant, sudden or life threatening deterioration of the [cerebrovascular, neurologic] system(s) required my full and direct attention, intervention and personal management. The aggregate critical care time was [31] minutes. This time is in addition to time spent performing reported procedures but includes the following: [x] Data Review and interpretation [x] Patient assessment and monitoring of vital signs [x] Documentation [x] Medication orders and management Discharge Plan Departure Patient Disposition: Home Clinical Impression: Speech abnormality Activity Restrictions/Additional Instructions: Symptoms of intermittent slurred speech of unclear cause. Workup tonight included CT scan noncontrast brain study, CT angiogram of the brain and neck arterial vessel systems, as well as MRI of the brain without contrast. No vascular abnormalities noted. No masses or tumors. No strokes were seen even on MRI. It is unclear what is causing your intermittent slurred speech symptoms. This seems like this would be unusual for seizure activity but there are unusual partial seizures that sometimes do this. It seems like this would be unusual for an atypical complex migraine but you do have a history of migraines, that might be possible. For now take aspirin antiplatelet therapy daily. Consider neurology consultation for further workup as an outpatient for now. Follow up with your regular provider in the next couple of days to expedite further workup as an outpatient with specialty consultation as needed. Sometimes cardiac echocardiogram were done, sometimes EEG studies are done does search for atypical seizures. Take 1 aspirin daily for now until further workup with Neurology. Return to the emergency department for any change worsening symptoms or any concerns prior Prescriptions: No Action aspirin [Adult Aspirin Regimen] 81 mg tablet,delayed release (DR/EC) 81 mg PO DAILY citalopram 20 mg tablet 20 mg PO DAILY lisinopril 10 mg tablet 5 mg PO DAILY estradiol 2 mg (7.5 mcg /24 hour) ring 1 vaginalrin VAG [id number] Qty: 1 0RF atorvastatin [Lipitor] 20 mg Tablet 20 mg PO BEDTIME Qty: 30 0RF Referrals: Miscellaneous,Doctor, MD [Primary Care Provider] - Stand Alone Forms: Patient Portal/API
[2024-01-09 15:09] LABS: Appearance Urine UA CLEAR; Bilirubin Urine UA NEGATIVE (NEGATIVE); Color Urine UA YELLOW; Glucose Urine UA NEGATIVE (Negative); Ketones Urine UA NEGATIVE (NEGATIVE); Leukocyte Esterase Urine UA NEGATIVE (NEGATIVE); Nitrite Urine UA NEGATIVE (Negative); Occult Blood Urine UA NEGATIVE (Negative); Protein Urine UA NEGATIVE (Negative); Specific Gravity Urine UA <=1.005 (1.000-1.035); Urobilinogen Urine UA 0.2 E.U./dL (0.2)
[2024-01-09 15:21] LABS: Troponin I < 0.012 ng/mL (0.01-0.034)
[2024-01-09 15:22] LABS: Bacteria Urine Occasional (0-1); Culture Indicated Urine Cult Not Indicated; RBC Urine 0-1/HPF (0-5/HPF); Squamous Epithelial Cell Urine 0-1 /HPF (0-5/HPF); Urine Volume 10mL (spun); WBC Urine 0-1/HPF (0-5/HPF)
--- NOTE | 2024-01-09 15:50 | DI.MRI.S_ITS ---
PROCEDURE: MR HEAD/BRAIN WO CON INDICATIONS: stroke symptoms, intermitt slurred speech TECHNIQUE: Non-contrast axial T1 spin echo, axial T2 fast spin echo, sagittal and axial FLAIR, coronal T2 fast spin echo, axial gradient echo, axial diffusion and ADC through the brain. COMPARISON: None. FINDINGS: Image quality: Excellent. CSF spaces: Ventricles appear symmetric in size and shape. Basal cisterns are patent. No extra-axial fluid collections. Brain: No intracranial bleeds or mass effects. There is cerebral volume loss for age. There are mild, age-appropriate periventricular and deep white matter chronic small vessel ischemic changes. Brainstem appears normal. Diffusion-weighted images show no acute infarct. No chronic ischemic insults. Normal intravascular flow voids are present. Skull and face: Calvarial bone marrow is normal in signal. Orbits are normal. Sinuses: Sinuses and mastoids are clear. IMPRESSION: Negative brain MRI for patient age. No acute intracranial process. Dictated by: Steven Duncan M.D. on 01/09/2024 at 17:47 Approved by: Steven Duncan M.D. on 01/09/2024 at 17:48
[2024-01-09 15:52] LABS: Ur Creatinine Normal (Normal); Ur Specific Gravity Normal (Normal); Urine pH Normal (Normal)
[2024-01-09 15:53] LABS: Urine Amphetamines Negative (Negative); Urine Barbiturates Negative (Negative); Urine Benzodiazepines Negative (Negative); Urine Cocaine Negative (Negative); Urine MDMA Negative (Negative); Urine Methadone Negative (Negative); Urine Methamphetamines Negative (Negative); Urine Opiates Negative (Negative); Urine Oxycodone Negative (Negative); Urine Phencyclidine Negative (Negative); Urine THC Negative (Negative); Urine Tricyclic Antidepressant Negative (Negative)
--- NOTE | 2024-01-09 18:33 | PC.NURSE ---
Pt frustrated with wait times. Pt advised not to leave. Dr Helm notified and to discuss results with pt and spouse.
[2024-01-09] MEDS: ASPIRIN EC 325 MG TABLET PO (18:48)
== END 2024-01-09 18:49 | disposition home or self-care (01) ==
PROVIDERS: Emergency Provider Emergency Medicine
DX: R47.9 Unspecified speech disturbances (principal); Z79.899 Other long term (current) drug therapy
CPT/HCPCS: 36415; 70450; 70496; 70498; 70551; 71045; 80053; 80305; 81001; 82550; 82962; 83735; 84484; 85025; 85610; 85730; 93005; 93010; 99284; Q9967

== ENCOUNTER → 2024-10-08 15:32 | Outpatient (CLI) | payer OTHER, SELFPAY ==
--- NOTE | 2024-10-08 15:35 | DI.MG.S_ITS ---
MM screening mammo BI: 10/08/2024. BI-RADS: 0 CLINICAL: 64-year old female for bilateral screening mammogram. Tyrer-Cuzick lifetime risk of 1.7%. No personal or first-degree family history of breast cancer. PRIOR EXAMS 11/05/2017. MAMMOGRAPHY TECHNIQUE: 2D and 3D (tomosynthesis) digital mammographic views obtained, with additional images as needed for full coverage. Current study was also evaluated with a Computer Aided Detection (CAD) system. DENSITY B. There are scattered areas of fibroglandular density. MAMMOGRAPHY FINDINGS Right: No suspicious mass, asymmetry, microcalcification, or other abnormality seen. Left: MLO only, Upper, Middle depth: Asymmetry needing additional imaging evaluation. IMPRESSION: Right * No evidence of malignancy. Left (Asymmetry): MLO only, Upper, Middle depth * Incomplete - asymmetry needing additional imaging evaluation. RECOMMENDATIONS Left: MLO only, Upper, Middle depth * Further evaluation with diagnostic mammography and diagnostic ultrasound. Ultrasound to be performed only if needed. OVERALL ASSESSMENT CATEGORY BI-RADS-0: Incomplete - Need Additional Imaging Evaluation. ELECTRONICALLY SIGNED: Rip Loomis M.D. on 10/09/2024 at 11:21:42 PM PT Interpreting Station ID: [id number]
--- NOTE | 2024-10-08 15:36 | DI.RAD.S_ITS ---
PROCEDURE: XR DEXA AXIAL SKELETON INDICATIONS: SCREENING COMPARISON: None. FINDINGS: Lumbar Spine: Bone mineral density 0.890 g/cm2, T score -1.4, baseline. Left Femoral Neck: Bone mineral density 0.651 g/cm2, T score -1.8. Left Hip: Bone mineral density 0.781 g/cm2, T score -1.3, baseline. Fracture Risk Calculation (when applicable): 10-year fracture risk of a major osteoporotic fracture 9.9 percent and of a hip fracture 1.4 percent. (T score greater or equal to -1.0 to: NORMAL) (T score from -1.1 to -2.4: OSTEOPENIA) (T score less than or equal to -2.5: OSTEOPOROSIS) IMPRESSION: Osteopenia. Follow-up guidelines as follows: Osteoporosis: Consider a repeat DEXA and Vertebral Fracture Assessment (VFA) exam in 2 years or sooner if medically necessary, to reassess this patient's status. Osteopenia: Consider a repeat DEXA in 2-3 years to reassess this patient's status, or if there is a new clinical indication. Normal: Consider a repeat DEXA in 5 years or sooner, or if there is a new clinical indication. All treatment decisions require clinical judgment and consideration of individual patient factors, including patient preferences, comorbidities, previous drug use, risk factors not captured in the FRAX model (e.g., frailty, falls, vitamin D deficiency, increased bone turnover, interval significant decline in bone density ) and possible under- or over-estimation of fracture risk by FRAX. In addition, the NOF Guide recommends that FDA-approved medical therapies be considered in postmenopausal women and men age >= 50 years with a: * Hip or vertebral (clinical or morphometric) fracture * T-score of <=-2.5 at the spine or hip * Ten-year fracture probability by FRAX of >= 3% for hip fracture or >=20% for major osteoporotic fracture. Dictated by: Augusto Nam M.D. on 10/08/2024 at 16:43 Approved by: Augusto Nam M.D. on 10/08/2024 at 16:43
== END ==
PROVIDERS: Referring Provider Internal Medicine; Visit Provider Internal Medicine
DX: Z12.31 Encounter for screening mammogram for malignant neoplasm of breast (principal); M85.88 Other specified disorders of bone density and structure, other site; Z78.0 Asymptomatic menopausal state
CPT/HCPCS: 77063; 77067; 77080

== ENCOUNTER 2024-11-20 09:02 | Emergency (ER) | payer OTHER, SELFPAY ==
--- NOTE | 2024-11-20 09:03 | ED.CHESTPAIN ---
HPI - Chest Pain General Chief Complaint: Chest Pain Stated Complaint: Chest pain, had ECG from pcp Time Seen by Provider: 11/20/24 09:03 History of Present Illness HPI narrative: Patient is a 64-year-old female with a past medical history of migraines, hyperlipidemia, hypertension, asthma, comes into the ED from home for evaluation of chest pain she states that this has been ongoing and intermittent for the past 48 hours. She states that when this 1st started she went to see her primary care doctor, she states that she had an EKG and was ?told you had a heart attack she was then discharged with aspirin and a statin. She states that she woke up still having some intermittent chest pain therefore decided come into the ED for further evaluation treatment. Chest pain is nonpleuritic in nature, nonexertional. Patient states that she did take a baby aspirin prior to arrival. She denies any other symptoms at this time. Related Data Home Medications ?Medication ?Instructions ?Recorded ?Confirmed citalopram 20 mg tablet 20 mg PO DAILY 06/07/18 04/13/20 lisinopril 10 mg tablet 5 mg PO DAILY 06/07/18 04/13/20 aspirin 81 mg tablet,delayed 81 mg PO DAILY 06/27/18 04/13/20 release (Adult Aspirin Regimen) Previous Rx's ?Medication ?Instructions ?Recorded estradiol 2 mg (7.5 mcg/24 hour) 1 vaginalrin vaginal [id number] #1 ea 02/04/19 vaginal ring atorvastatin 20 mg tablet (Lipitor) 20 mg PO BEDTIME #30 tabs 03/25/20 Allergies Allergy/AdvReac Type Severity Reaction Status Date / Time Sulfa (Sulfonamide Allergy Verified 11/20/24 09:12 Antibiotics) Review of Systems Review of Systems Narrative: General: Denies fever, chills, weight loss HEENT: Denies headache, eye drainage, eye irritation, head trauma, sore throat, voice change Cardiovascular: Positive chest pain, denies palpitations, tachycardia Respiratory: Denies any shortness of breath, cough, wheeze, stridor GI/: Denies any abdominal pain, nausea, vomiting, diarrhea, bright red blood per rectum, melanotic stools, urinary frequency, urinary retention, dysuria, hematuria MSK: Denies any joint pain, muscle pains, swelling Skin: Denies any rashes, lesions, discoloration Neuro: Denies any headache, lightheadedness, dizziness, fainting, weakness Psych: Denies SI/HI Patient History Medical History (Updated 11/20/24 @ 09:56 by Ray Mandujano DO) Osteopenia (~1991) Low testosterone Anxiety Essential hypertension Low back pain Surgical History (Updated 09/08/20 @ 20:07 by Bettie Jeronimo) Anesthesia History of total hysterectomy (~1991) History of right cataract surgery Family History (Updated 09/08/20 @ 20:12 by Bettie Jeronimo) Mother Myocardial infarction Hx of coronary artery bypass surgery Hypertension History of heart disease Father Cancer Brother Drug addict Grandfather Stroke Grandmother Cancer Grandfather History of heart disease Grandmother History of emphysema Social History household members: friend(s) and none Smoking Status: Unknown if ever smoked alcohol intake frequency: a few times a week Exam Narrative Exam Narrative: General: Cooperative, well-developed, not in acute distress HEENT: Normocephalic, atraumatic, PERRLA, normal sclera, eyelids normal Neck: Active full range of motion, atraumatic Chest: Normal to inspection, negative crepitus, no overlying erythema ecchymosis Respiratory: Normal respiratory effort, not in acute respiratory distress, clear to auscultation bilaterally negative cough, wheeze, tachypnea, rhonchi, rales Cardiology: Regular rate rhythm negative gallop, murmur, rubs GI/: No tenderness to palpation, soft, non rigid, normal to inspection, exam deferred MSK: Full active range of motion in all 4 extremities, atraumatic, no tenderness to palpation of any bony prominences Skin: No rashes or lesions noted Neuro: Alert awake oriented x3, moves all 4 extremities spontaneously, cranial nerves intact, able to answer all questions appropriately follows commands appropriately Psych: Patient anxious, tearful Cooperative, negative suicidal or homicidal ideations Initial Vital Signs Initial Vital Signs: Vital Signs Temperature 98.7 F 11/20/24 09:06 Pulse Rate 76 11/20/24 09:06 Respiratory Rate 13 11/20/24 09:06 Blood Pressure 169/99 H 11/20/24 09:06 Pulse Oximetry 99 11/20/24 09:06 Oxygen Delivery Method Room Air 11/20/24 09:06 Course Orders Ordered: ED Orders 11/20/24 09:04 XR chest 1V Stat EKG-12 Lead Stat 11/20/24 09:10 Complete Blood Count AUTO DIFF Stat Comprehensive Metabolic Panel Stat Lipase Stat MAG [Magnesium] Stat NT-proBNP (BNP-Adult 18+) Stat PTT Partial Thromboplastin [place] Stat Prothrombin Time INR Stat Troponin & CK Cardiac Panel Stat Discontinued Medications Aspirin (Aspirin 81 Mg Chew Tab) 324 mg PO NOW ONE Stop: 11/20/24 09:05 Last Admin: 11/20/24 09:31 Dose: 243 mg Documented By: RB Vital Signs Vital signs: Vital Signs - 8 hr 11/20/24 09:06 11/20/24 09:10 Temperature 98.7 F Pulse Rate 76 76 Respiratory Rate 13 Blood Pressure 169/99 H Pulse Oximetry 99 100 Oxygen Delivery Method Room Air MDM - Chest Pain Differential Diagnosis Differential diagnosis: Likely stable angina, unstable angina pectoris, atypical chest pain, st elevation myocardial infarction, costochondritis, chest pain and other (Pneumonia, electrolyte abnormality) Lab Data 11/20/24 09:10 11/20/24 09:10 Labs: Lab Results 11/20/24 Range/Units 09:10 WBC 8.1 (4.5-11.0) X10^3/uL RBC 4.26 (4.0-5.2) X10^6/uL Hgb 13.6 (12.0-16.0) g/dL Hct 40.8 (36-46) % MCV 95.7 (80-100) fL MCH 31.9 (26-34) PG MCHC 33.3 (30-36) % RDW 13.5 (11.6-14.8) % Plt Count 400 (150-400) X10^3/uL Neut % (Auto) 53.5 (50-75) % Lymph % (Auto) 36.6 (25-40) % [place] % (Auto) 7.2 (3-14) % Eos % (Auto) 1.6 L (2-4) % Baso % (Auto) 1.1 (0-2) % Neut # (Auto) 4300 (3250-0359) /uL Lymph # (Auto) 3000 (3069-6224) /uL [place] # (Auto) 600 (0-900) /uL Eos # (Auto) 100 (0-450) /uL Baso # (Auto) 100 (0-100) /uL PT 10.6 (9.4-12.5) SECONDS INR 0.9 (0.9-1.3) APTT 28 (25.1-36.5) SECONDS Sodium 139 (137-145) mmol/L Potassium 4.2 (3.4-5.1) mmol/L Chloride 102 (98-107) mmol/L Carbon Dioxide 30 (22-32) mmol/L BUN 15 (7-17) mg/dL Creatinine 1.03 (0.52-1.04) mg/dL Estimated GFR 60 (>60) mL/min BUN/Creatinine Ratio 14.6 (6-22) Glucose 71 (70-99) mg/dL Calcium 9.5 (8.4-10.2) mg/dL Magnesium 2.2 (1.6-2.3) mg/dL Total Bilirubin 0.5 (0.2-1.3) mg/dL AST 30 (14-36) IU/L ALT 20 (<35) IU/L Alkaline Phosphatase 53 (38-126) U/L Total Creatine Kinase 70 (30-135) U/L Troponin I < 0.012 (0.01-0.034) ng/mL NT-Pro-B Natriuret Pep 133 H (<125) pg/mL Total Protein 8.2 (6.3-8.2) g/dL Albumin 4.6 (3.5-5.0) g/dL Globulin 3.6 (1.7-4.1) g/dL Albumin/Globulin Ratio 1.3 (1.0-2.8) Lipase 229 (23-300) U/L Imaging Data Chest x-ray: Radiologist's Impression: [address] [address] XRay Report Signed Patient: Frances Cheng MR#: [id number] : 1960 Acct:[id number] Age/Sex: 64 / F Date of Service: 11/20/24 Loc: ED Accession Number: [id number] Procedure: XR chest 1V Ordering Provider: Ray Mandujano D.O. PROCEDURE: XR CHEST 1V INDICATIONS: chest pain TECHNIQUE: One view of the chest was acquired. COMPARISON: [facility], CR, XR CHEST 1V, 01/09/2024, 13:00. FINDINGS: Surgical changes and devices: None. Lungs and pleura: Lungs are clear. No pleural effusions or pneumothorax. Mediastinum: Mediastinal contours appear normal. Heart size is normal. Bones and chest wall: No suspicious bony lesions. Overlying soft tissues appear unremarkable. IMPRESSION: No acute cardiopulmonary abnormality is seen. ECG Data Interpretation: EKG interpreted ED physician sinus 75 beats per minute QTC 402, normal axis, nonspecific ST changes, no STEMI MDM Narrative Medical decision making narrative: Patient is a 64-year-old female with a past medical history of hypertension, migraines, comes into the ED from home for evaluation of chest pain. Has been ongoing intermittent persistent for the past 2 days. She states that when this 1st started she saw her primary care doctor she states that at that time she had an EKG done and she states that she was told that she ?had a heart attack she states that she was discharged with aspirin and statin. States that she did take a baby aspirin prior to arrival. She describes the chest pain as a pressure nonexertional nonpleuritic in nature. She states that she is scared she is having ?another heart attack. Patient not complaining of any other symptoms at this time. Patient's lab work unremarkable, troponin negative, patient without any active chest pain at time of re-evaluation. Chest x-ray without any acute cardiopulmonary abnormality, patient with a heart score of 3, patient has already been started on aspirin as well as statin. She is already in the process of seeing Cardiology, did instruct her to keep this appointment, she was given strict return precautions she verbalized understanding of this and agrees to being discharged home with outpatient follow up. Discharge Plan Departure Patient Disposition: Home Clinical Impression: Chest pain Instructions: DI for Chest Pain Activity Restrictions/Additional Instructions: Please follow up with your primary care doctor as well as Cardiology to obtain echo and stress test as needed in outpatient setting Please read the discharge instructions sheet carefully and bring all papers to all doctor follow-up visits, as it may contain information that your doctor may want to see. Disease processes change and evolve, if your symptoms worsen or if you develop any new symptoms that are concerning to you please return for evaluation. Your evaluation today does not show any evidence of any life-threatening/serious illnesses requiring admission to the hospital or surgery. Please follow-up with your doctor for re-evaluation in approximately 1 day. Seek immediate medical attention for any worrisome symptoms. *If you do not have a primary care provider please contact the [facility] Resource line at [phone]. They will ask some questions about your medical history and help get you set up with a doctor in the community. Prescriptions: No Action aspirin [Adult Aspirin Regimen] 81 mg tablet,delayed release (DR/EC) 81 mg PO DAILY citalopram 20 mg tablet 20 mg PO DAILY lisinopril 10 mg tablet 5 mg PO DAILY estradiol 2 mg (7.5 mcg /24 hour) ring 1 vaginalrin VAG [id number] Qty: 1 0RF atorvastatin [Lipitor] 20 mg Tablet 20 mg PO BEDTIME Qty: 30 0RF Referrals: Miscellaneous,MD Dwayne [Primary Care Provider, Medical] Melva Yee MD [Physician, Cardiology] - 3-5 days Referral Note: chest pain Stand Alone Forms: Patient Portal/API
--- NOTE | 2024-11-20 09:04 | DI.RAD.S_ITS ---
PROCEDURE: XR CHEST 1V INDICATIONS: chest pain TECHNIQUE: One view of the chest was acquired. COMPARISON: [facility], CR, XR CHEST 1V, 01/09/2024, 13:00. FINDINGS: Surgical changes and devices: None. Lungs and pleura: Lungs are clear. No pleural effusions or pneumothorax. Mediastinum: Mediastinal contours appear normal. Heart size is normal. Bones and chest wall: No suspicious bony lesions. Overlying soft tissues appear unremarkable. IMPRESSION: No acute cardiopulmonary abnormality is seen. Dictated by: Steven Duncan M.D. on 11/20/2024 at 9:42 Approved by: Steven Duncan M.D. on 11/20/2024 at 9:43
[2024-11-20 09:06] VITALS: BP 169/99; PULSE 76; RESP 13; TEMP 37.1; O2SAT 99; BMI 24.5
[2024-11-20 09:10] VITALS: PULSE 76; O2SAT 100
--- NOTE | 2024-11-20 09:10 | EKG_ITS ---
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
[2024-11-20 09:19] LABS: Add Manual Diff / Slide Review NO; Hematocrit 40.8 % (36-46); Hemoglobin 13.6 g/dL (12.0-16.0); Lymphocytes Absolute Auto 3000 /uL (1100-4500); Mean Corpuscular HGB Conc 33.3 % (30-36); Mean Corpuscular Hemoglobin 31.9 PG (26-34); Mean Corpuscular Volume 95.7 fL (80-100); Platelet Count 400 X10^3/uL (150-400)
[2024-11-20 09:28] LABS: INR 0.9 (0.9-1.3); Prothrombin Time 10.6 SECONDS (9.4-12.5)
[2024-11-20 09:30] VITALS: PULSE 67; O2SAT 98
[2024-11-20 09:31] VITALS: BP 120/57; PULSE 67; RESP 18; O2SAT 98
[2024-11-20 09:31] LABS: PTT Partial Thromboplastin Tim 28 SECONDS (25.1-36.5)
[2024-11-20] MEDS: ASPIRIN 81 MG CHEW TAB 324 MG PO (09:31)
--- NOTE | 2024-11-20 09:32 | PC.NURSE ---
Patient took 81mg aspirin prior to arrival. Patient given the remaining three baby aspirins.
[2024-11-20 09:37] LABS: Alanine Aminotransferase 20 IU/L (<35); Albumin 4.6 g/dL (3.5-5.0); Albumin Globulin Ratio 1.3 (1.0-2.8); Alkaline Phosphatase 53 U/L (38-126); Blood Urea Nitrogen 15 mg/dL (7-17); Calcium 9.5 mg/dL (8.4-10.2); Carbon Dioxide 30 mmol/L (22-32); Chloride 102 mmol/L (98-107); Creatine Kinase 70 U/L (30-135); Estimated Glomerular Filt Rate 60 mL/min (>60); Globulin 3.6 g/dL (1.7-4.1); Glucose 71 mg/dL (70-99); HEMOLYSIS < 15 (0-50); Lipase 229 U/L (23-300); Magnesium 2.2 mg/dL (1.6-2.3); Potassium 4.2 mmol/L (3.4-5.1); Sodium 139 mmol/L (137-145); Total Protein 8.2 g/dL (6.3-8.2)
[2024-11-20 09:49] LABS: NT-proBNP (BNP-Adult 18+) 133 pg/mL (<125); Troponin I < 0.012 ng/mL (0.01-0.034)
[2024-11-20 10:00] VITALS: BP 106/69; PULSE 65; RESP 23; O2SAT 96
== END 2024-11-20 10:09 | disposition home or self-care (01) ==
PROVIDERS: Emergency Provider Student in an Organized Health Care Education/Training Program
DX: R07.9 Chest pain, unspecified (principal)
CPT/HCPCS: 36415; 71045; 80053; 82550; 83690; 83735; 83880; 84484; 85025; 85610; 85730; 93005; 99284